=== PATIENT | female | born 1945 | race Caucasian/White ===

== ENCOUNTER → 2017-03-15 | Outpatient (CLI) | payer MEDICARE ==
[2017-03-15 09:26] LABS: EKG EKG PERFORMED
[2017-03-15 10:05] LABS: Appearance,Urine Clear (Clear); Bilirubin,Urine Negative (Negative); Glucose,Urine (UA) Negative (Negative); Ketones,Urine Negative (Negative); Leukocyte Esterase,Urine Small (Negative); Nitrite,Urine Negative (Negative); Particle Count 707; Protein,Urine Negative (Negative); RBC,Urine <1 /hpf (0-5); Specific Gravity,Urine 1.011 (1.001-1.035); Squamous Epithelial Cell,Urine 1 /hpf (0-4); UA Billing (MACRO vs. MICRO) MICRO; Urobilinogen,Urine <2.0 mg/dL (<2.0); WBC,Urine 1 /hpf (0-5)
[2017-03-15 10:06] LABS: Basophils # (A) 0.1 k/uL (0-0.2); Basophils % (A) 2 %; CH 32.4; CHCM 33.5; Eosinophils # (A) 0.1 k/uL (0-0.7); Eosinophils % (A) 4 %; HCT 39.8 % (34.0-46.0); Luc # (Auto) 0.09; Luc % (Auto) 3; Lymphocytes # (A) 1.2 k/uL (1.0-4.8); Lymphocytes % (A) 34 %; MCH 31.8 pg (25.0-35.0); MCHC 32.8 g/dL (31.0-37.0); Mean Platelet Volume 7.6; Monocytes # (A) 0.3 k/uL (0-1.0); Monocytes % (A) 8 %; Neutrophils # (A) 1.8 k/uL (1.3-7.7); Neutrophils % (A) 50 %; WBC 3.6 k/uL (3.8-10.6); WBC (Perox) 3.57
[2017-03-15 10:10] LABS: Partial Thromboplastin Time 22.7 sec (22.0-30.0); Prothrombin Time 10.1 sec (9.0-12.0)
[2017-03-15 10:39] LABS: Anion Gap 6 mmol/L; Blood Urea Nitrogen 19 mg/dL (7-17); Calcium 9.4 mg/dL (8.4-10.2); Carbon Dioxide 31 mmol/L (22-30); Chloride 105 mmol/L (98-107); Glucose 105 mg/dL (74-99); Non-African American GFR(MDRD) >60 (>60 ml/min/1.73 sqM); Sodium 142 mmol/L (137-145)
== END | disposition home or self-care (01) ==
LOC: LABPAT 09:14
PROVIDERS: ATTEND Orthopaedic Surgery Orthopaedic Surgery of the Spine
DX: Z01.810 Encounter for preprocedural cardiovascular examination (principal); Z01.812 Encounter for preprocedural laboratory examination; Z01.818 Encounter for other preprocedural examination; M43.17 Spondylolisthesis, lumbosacral region
CPT/HCPCS: 80048; 81001; 85025; 85610; 85730; 86850; 86900; 86901; 87070; 93005

== ENCOUNTER 2017-03-23 06:25 | Inpatient (IN) | payer MEDICARE ==
[~2017-03-23 06:25] MED LIST: BACITRACIN 50,000 UNIT, POLYMYXIN B 500,000 UNIT in SODIUM CHLORIDE 0.9% IRRIGATIO 1,00... IRRIGATION ONE; LIDOCAINE 1% 20 ML VIAL (10MG/ML) FOR IV START INTRADERMA PRN; ONDANSETRON 4 MG/2 ML VIAL IVP PRN; ceFAZolin 2 GM in SODIUM CHLORIDE 0.9% 100 ML IVPB ONE
[2017-03-23] MEDS: LACTATED RINGERS 1,000 ML IV SCH (07:15)
[2017-03-23] MEDS ORDERED: fentaNYL (PF) 50 MCG/ML 2 ML AMP ONE (08:00)
[2017-03-23] MEDS ORDERED: GELATIN SPONGE,ABSORB (LARGE) 1 EACH SPONGE TOPICAL ONE (08:00)
[2017-03-23] MEDS ORDERED: LIDOCAINE 1% INJ 10MG/ML (20 ML MDV) ONE (08:00)
[2017-03-23] MEDS ORDERED: ONDANSETRON 4 MG/2 ML VIAL ONE (08:00)
[2017-03-23] MEDS ORDERED: ePHEDrine 50 MG/ML 1 ML AMP ONE (08:00)
[2017-03-23] MEDS ORDERED: SODIUM CHLORIDE 0.9% IRRIG 1,000 ML BTL IRRIGATION ONE (08:00)
[2017-03-23] MEDS ORDERED: LIDOCAINE 0.5%-EPI 1:200,000 50 ML VIAL SQ ONE (08:00)
[2017-03-23] MEDS ORDERED: THROMBIN (BOVINE) 5,000 UNIT VIAL TOPICAL ONE (08:00)
[2017-03-23] MEDS ORDERED: MIDAZOLAM 2 MG/2 ML VIAL ONE (08:00)
[2017-03-23] MEDS ORDERED: HEPARIN SODIUM,PORCINE 10,000 UNIT/ML 1 ML VIAL ONE (08:00)
[2017-03-23] MEDS ORDERED: GLYCOPYRROLATE 0.2 MG/ML 2 ML VIAL ONE (08:00)
[2017-03-23] MEDS ORDERED: ROCURONIUM BROMIDE 10 MG/ML 10 ML VIAL IV ONE (08:00)
[2017-03-23] MEDS ORDERED: BUPIVACAINE (PF) 0.25% 30 ML VIAL SQ ONE (08:00)
[2017-03-23] MEDS ORDERED: SUCCINYLCHOLINE CHLORIDE 100 MG/5 ML SYR IV ONE (08:00)
[2017-03-23] MEDS ORDERED: NEOSTIGMINE 1 MG/ML 10 ML VIAL ONE (08:00)
[2017-03-23] MEDS ORDERED: PROPOFOL 10 MG/ML 20 ML VIAL IV ONE (08:00)
[2017-03-23] MEDS ORDERED: LACTATED RINGERS 1,000 ML IV ONE ×2 (09:17→11:54)
--- NOTE | 2017-03-23 09:38 | XR ---
EXAMINATION TYPE: XR lumbar spine 1V DATE OF EXAM ORDERED: 03/23/2017 HISTORY: Needle Placement. COMPARISON: None. FINDINGS: A metallic pointer is pointing at the S1 vertebral body.
--- NOTE | 2017-03-23 10:45 | XR ---
EXAMINATION TYPE: XR lumbar spine 2 or 3V DATE OF EXAM: 03/23/2017 CLINICAL HISTORY: pain TECHNIQUE: AP and lateral views of the lumbar spine. COMPARISON: None. FINDINGS: There is fusion at L5-S1 with screws in place. Intervertebral body spacers are noted for L4-5 and L5- S1. Laminectomy changes identified. Postoperative alignment. IMPRESSION: Postsurgical changes as discussed
[2017-03-23] MEDS ORDERED: BENZOCAINE/MENTHOL LOZENG 1 EACH LOZENGE MUCOUS MEM PRN (11:06)
[2017-03-23] MEDS ORDERED: MAGNESIUM HYDROXIDE 2,400 MG/10 ML CUP PO PRN (11:06)
[2017-03-23] MEDS ORDERED: ONDANSETRON 4 MG/2 ML VIAL IVP PRN (11:06)
[2017-03-23] MEDS ORDERED: HYDROmorphone 1 MG/ML 1 ML SYRINGE IVP PRN ×2 (11:06)
[2017-03-23] MEDS: HYDROmorphone 1 MG/ML 1 ML SYRINGE IVP PRN ×4 (11:20→11:35)
--- NOTE | 2017-03-23 11:20 | P.OP ---
Date of Procedure: 03/23/17 Preoperative Diagnosis: Spinal stenosis L5-S1, degenerative disc disease L5-S1, adjacent level degeneration L5-S1, history of prior decompression and fusion L3 4 L4 5, lower extremity radiculopathy Postoperative Diagnosis: Same Findings of solid fusion L3 4 L4 5 Procedure(s) Performed: Implants: Anesthesia: GETA Pathology: none sent Condition: stable Disposition: PACU Indications for Procedure: Operative Findings: Description of Procedure: BRIEF OPERATIVE NOTE Preoperative Diagnosis: Spinal stenosis L5-S1, adjacent level degeneration L5- S1 with history of prior fusion L3 4 L4 5, degenerative disc disease L5-S1, lower extremity radiculopathy L5-S1, retained hardware L3 4 L4 5 Postoperative Diagnosis: Same with findings of stable fusion L3 4 L4 5 Procedure: Laminectomy and decompression L5-S1 with wide bilateral foraminotomy and facetectomy Posterior lateral decompression and fusion Transforaminal lumbar interbody fusion for a 360 fusion L5-S1 Discectomy for decompression L5-S1 Placement of interbody graft L5-S1 Local autogenous bone grafting Bone marrow aspiration via pedicle at S1 Removal of deep hardware L3 4 and 5 Expiration of fusion L3 4 L4 5 with findings of solid fusion Use of Cell Saver Use of bone graft extenders Use of neuro monitoring Surgeon: Dr. Block Entry Clerk: Kashif THURMAN who is present throughout the entire the case persistence during positioning, dissection, exposure, visualization, and all crucial elements of the case as well as closure. Anesthesia: General anesthesia Estimated blood loss: Approximately 150 mL with 50 mL given back through Cell Saver Complications: None apparent Components implanted: We implanted a new K2M [place] pedicle screws 7.5 mm at L5 and 6.5 at S1 with rods and Screws, we'll see used one large osteochondral Cancellus bone sponge to supplement the local autogenous bone graft and bone marrow aspirate Disposition: To recovery room in good stable condition. OPERATIVE INDICATIONS The patient has had long-standing issues in their lower back and lower extremities. Several years ago she had undergone decompression and fusion for lumbar spine with stenosis and degenerative change. She had done well after her surgery and was having in his result with good findings of 6 stable fusion at L3 4 and L4 5. However over the past several months she is developing significant worsening in her low back and lower extremities over an S1 distribution. She was found have progressive degeneration at L5-S1 with significant stenosis and foraminal stenosis. We felt that the adjacent level LV -SI was the matrix to her new and recurrent pain. We discussed different treatment options for her. The patient has been through conservative treatment. She did not have any lasting benefit to light aggressive conservative treatment. We discussed various treatment options including surgery, and the patient wishes to proceed with surgery We discussed the risk, patient's alternatives and benefits of surgery including but not limited to, risk of bleeding risk of infection, risk of need for further surgery, risk of decreased, loss of motion, muscle function, malunion nonunion, hardware failure , nerve damage, paralysis, heart attack, blindness and . OPERATIVE SUMMARY After discussing all the risks, patient alternatives and benefits at length, the patient elected to proceed with surgical intervention, signed informed consent, and presented for their procedure. The patient was seen and examined in the preoperative holding area and the surgical site was marked. The patient was given antibiotics and brought to the operating room. The patient was sedated and intubated by anesthesia in standard fashion. The patient was positioned on to the operating room table in a prone position on the appropriate frame which was well-padded and well molded. We were careful to pad any bony prominences and pressure points. We were careful to maintain the patient's cervical spine and good neutral alignment and position throughout. The patient was prepped and draped in a normal standard fashion. An appropriate timeout and keystone protocol performed. We were able to proceed with the surgery. The local wound area was infiltrated with local anesthetic. An incision was made at the midline longitudinally over the appropriate levels utilizing the prior incision from L3 to S1. Dissection was taken down subcutaneously to the level of the fascia which was split midline. Dissection was taken over the lamina to expose the hardware L3 4 and 5 and pedicle screws and rods. I was able to remove the cross-link appropriately and then expose the pedicle screw heads. The Screws and rods and then pedicle screws were all removed appropriately the appropriate instruments. The removed hardware was removed from the bone and examined and found to be in total. I was able to explore the fusion mass and see if there is any motion at L3 4 and 5 and there was not found be any motion at those levels. I felt that there was a good solid fusion L3 4 and 5. I was able to dissect down over S1 and the facet at L5 -S1 bilaterally. I placed a metallic marker at the S1 pedicle. Intraoperative x-ray was taken which showed a marker at the appropriate level of S1. We were able to proceed with placement of the pedicle holes and screws. The patient had all their twitches back. The wound was copiously irrigated and suctioned dry as had been done periodically throughout the case. Screw holes were established similarly at the S1 I felt we could use the pedicle screw holes at L5 bilaterally. level. A sharp awl was used to establish the starting hole at S1. It was palpated and found to have good for au and good base. A monitored Steffee probe was used to establish the pedicle hole. It was positioned so there was no stimulation at 12 mA. The hole was palpated and found to have good for au and a good base. The hole was tapped with the appropriate sized tap. The sacral ala was decorticated with a high-speed bur. I was able to use these holes to place the appropriate size screw and good alignment and good position with good bony purchase. When the screws were inserted there were stimulated, and found to have no stimulation at 20 mA. I used 7.5 screws at L5 and 6.5 screws at S1 bilaterally. I was able to turn my attention to the decompression. decompression was performed with a combination of rongeurs, curettes, Kerrison rongeurs and a ball -tip feeler. All of the bone that was removed was stripped and morcellized for use as autogenous bone graft later in the case. There was significant hypertrophy of the facet joints and ligamentum flavum which was removed appropriately for decompression. I was able to obtain good central decompression as well as wide bilateral foraminal decompression. There is no evidence of dural tear or leak. Good hemostasis was maintained. The wound was irrigated and suctioned dry. I performed a complete facetectomy at the appropriate level on the most symptomatic side on the right of L5-S1. All bone that was removed was saved for local autogenous bone grafting. I was able to gain access to the disc space at the appropriate level/levels. Good hemostasis was maintained. I was able to protect the neurologic structures. No was made of significant disc protrusion causing further stenosis. A discectomy was performed. This provided further decompression. I was also able to perform complete discectomy and endplate preparation with a combination of pituitary curettes, rasps and scrapers. With the interbody space prepared, I was able to do appropriate sizing. The appropriate size cage was chosen. The wound was irrigated and suctioned dry. The interbody space was packed with local autogenous bone graft and a small portion of bone graft substitute, as was the cage itself. Protecting the soft tissue structures, I was able place the cage in good alignment and good position with good fit and fill. There is no evidence of extrusion of the graft material nor protrusion of the interbody device. The wound was irrigated and suctioned dry. With the hardware intact, intraoperative x-ray was again taken which showed good alignment and position of the hardware at the appropriate levels at L5-S1. We were then able to measure, contour and place the rods and appropriate hardware bilaterally. I was able to place capcrews, tighten them down, and shear them off appropriately. The sheared portion was counted and accounted for. With this intact I was able to place the local otitis bone graft with additional bone graft enhancer as necessary into the posterior lateral gutters bilaterally. With the bone graft intact, a stable construct, and good decompression at the appropriate levels, we were able to proceed with closure. Good hemostasis was maintained. There is no evidence of dural tear or leak. The fascia was closed for a watertight closure. The subcutaneous tissue was closed over a superficial drain. The subcuticular tissue was closed with absorbable suture. The wound was cleaned and dried and dressed with the appropriate dressing. The drapes were broken down. The patient was gently rolled back onto their hospital bed being careful to maintain their cervical spine and good neutral alignment and position. They were woken up by anesthesia , extubated, and brought to the recovery room in good stable condition. The patient will be admitted to the hospital for appropriate postoperative care , medical management and monitoring. We will continue to follow them closely about the postoperative course.
[2017-03-23] MEDS: MIDAZOLAM 2 MG/2 ML VIAL IV PRN ×2 (11:45→11:50)
[2017-03-23] MEDS: HYDROmorphone PCA 5 MG/25 ML SYRINGE IV PRN ×2 (12:40→20:08)
[2017-03-23 14:29] VITALS: BMI 32.0
[2017-03-23] MEDS: SODIUM CHLORIDE 0.9% 1,000 ML IV SCH (16:01)
[2017-03-23] MEDS: HYDROcodone/APAP 5-325MG 1 EACH TAB PO PRN ×2 (16:04→20:07)
[2017-03-23] MEDS: ceFAZolin 2 GM in SODIUM CHLORIDE 0.9% 100 ML IVPB SCH ×2 (16:04→23:45)
[2017-03-23] MEDS: CALCIUM CARB-VIT D 500MG-200UN 1 EACH TAB PO SCH (17:26)
[2017-03-23] MEDS: GABAPENTIN 300 MG CAP PO SCH (21:21)
[2017-03-23] MEDS: CYCLOBENZAPRINE 5 MG TAB PO SCH (21:21)
[2017-03-23] MEDS: ZOLPIDEM 10 MG TAB PO SCH (21:21)
[2017-03-24] MEDS: SODIUM CHLORIDE 0.9% 1,000 ML IV SCH ×3 (02:15→13:58)
[2017-03-24] MEDS: SENNOSIDES-DOCUSATE SODIUM 1 EACH TAB PO SCH (07:35)
[2017-03-24] MEDS: SERTRALINE 100 MG TAB PO SCH (07:35)
[2017-03-24] MEDS: HYDROcodone/APAP 5-325MG 1 EACH TAB PO PRN ×3 (07:35→20:31)
[2017-03-24 08:20] LABS: Anion Gap 7 mmol/L; Blood Urea Nitrogen 13 mg/dL (7-17); Calcium 8.5 mg/dL (8.4-10.2); Carbon Dioxide 25 mmol/L (22-30); Chloride 104 mmol/L (98-107); Glucose 117 mg/dL (74-99); Non-African American GFR(MDRD) >60 (>60 ml/min/1.73 sqM); Potassium 3.8 mmol/L (3.5-5.1); Sodium 136 mmol/L (137-145)
[2017-03-24 08:23] LABS: Basophils % (A) 0 %; CH 32.5; Eosinophils # (A) 0.2 k/uL (0-0.7); Eosinophils % (A) 2 %; HCT 32.8 % (34.0-46.0); HDW 2.57; HGB 11.4 gm/dL (11.4-16.0); Luc # (Auto) 0.06; Luc % (Auto) 1; Lymphocytes # (A) 0.4 k/uL (1.0-4.8); Lymphocytes % (A) 5 %; MCH 32.3 pg (25.0-35.0); MCHC 34.6 g/dL (31.0-37.0); MCV 93.4 fL (80.0-100.0); Mean Platelet Volume 7.5; Monocytes # (A) 0.3 k/uL (0-1.0); Monocytes % (A) 4 %; Neutrophils # (A) 8.1 k/uL (1.3-7.7); Neutrophils % (A) 89 %; RBC 3.52 m/uL (3.80-5.40); RDW 12.8 % (11.5-15.5); WBC 9.1 k/uL (3.8-10.6); WBC (Perox) 9.89
[2017-03-24] MEDS: LACTATED RINGERS 1,000 ML IV SCH (09:13)
--- NOTE | 2017-03-24 09:14 | P.PN ---
Progress Note - Text Postoperative day #1 Patient is seen and examined today at bedside. The patient has some pain around the surgical site as expected. Pain is being controlled with medication. She feels that this surgery thus far has been going better than her last. She has been able to sit up in bed and is tolerating her diet. She has not had been ambulatory but feels that she will be able to do so with therapy. Physical Exam Afebrile with stable vital signs Abdomen is soft nontender. Chest has good excursion deep and space expiration The incision site is clean dry and intact. No erythema there is no purulence. The dressing and the drain are intact without significant drainage. Extremities have not had neurologic change from prior to surgery. She has sustained dorsiflexion plantarflexion and EHL intact. Her strength is appropriate. Calves and thighs were soft nontender without evidence of DVT. Assessment/Plan Postoperative day #1 status post decompression and fusion L5-S1 with removal of hardware L3 4 L4 5 for her spinal stenosis Patient is progressing as expected from the surgery. We will try to get her up today with physical therapy. She is doing well thus far with her diet and pain control. We will continue to increase the patient's mobilization with therapy. We will continue pain control with oral or IV medications. We'll continue to follow patient closely.
[2017-03-24] MEDS: CYANOCOBALAMIN 500 MCG TAB PO SCH (12:15)
[2017-03-24] MEDS: CALCIUM CARB-VIT D 500MG-200UN 1 EACH TAB PO SCH ×2 (12:16→18:07)
[2017-03-24] MEDS: MULTIVITAMINS, THERA 1 EACH TAB PO SCH (12:16)
[2017-03-24] MEDS: CYCLOBENZAPRINE 5 MG TAB PO SCH (20:31)
[2017-03-24] MEDS: ZOLPIDEM 10 MG TAB PO SCH (20:31)
[2017-03-24] MEDS: GABAPENTIN 300 MG CAP PO SCH (20:31)
[2017-03-25] MEDS: HYDROcodone/APAP 5-325MG 1 EACH TAB PO PRN ×4 (00:37→20:17)
[2017-03-25] MEDS: SODIUM CHLORIDE 0.9% 1,000 ML IV SCH ×2 (05:32→17:13)
[2017-03-25] MEDS: LACTATED RINGERS 1,000 ML IV SCH (05:33)
[2017-03-25] MEDS: SERTRALINE 100 MG TAB PO SCH (08:31)
[2017-03-25] MEDS: SENNOSIDES-DOCUSATE SODIUM 1 EACH TAB PO SCH (08:31)
--- NOTE | 2017-03-25 09:00 | P.PN ---
Progress Note - Text Orthopedic Spine Patient is a pleasant 71-year-old female who is seen and examined at the bedside following posterior lateral decompression and fusion performed Tuesday. Patient states they are doing well postsurgically. Currently does not complain of nausea, vomiting, fever, or chills. Patient states pain has been adequately controlled. Patient is eating and voiding freely without difficulty. He has been able to ambulate to the restroom. She feels overall she is improving much better this time as compared to her previous lumbar surgery. The MEDICAL DIRECTOR has been discontinued. Overall her pain has been fairly well controlled with oral medications. If she continues to improve, she feels she may be ready for discharge home tomorrow. Physical Exam Lumbar Fusion: Status post surgical day number 2 Patient is awake, alert, and oriented 3 Vital signs stable Good chest excursion with deep inspiration and expiration Abdomen soft nontender Dorsiflexion, plantarflexion, and extensor hallucis longus positive sustained bilaterally No signs or symptoms of DVT; no calf pain; pneumatic cuffs intact bilateral lower extremities Dressing is clean, dry, and intact; no erythema, purulence, or signs of infection Hemovac drain well secure Dressing removing physical examination; Hemovac drain removed Nonstick Telfa and Tegaderm placed over the incision site Neurovascularly intact bilaterally lower extremities Assessment: Posterior lateral decompression and fusion L5-S1 Transforaminal lumbar interbody fusion of L5-S1 Removal of hardware L3-5 L5-S1 spinal canal stenosis, degenerative disc disease, and adjacent level degeneration Lower extremity radiculopathy Plan: 1. Ambulate as tolerated; work with Physical Therapy to increase mobilization 2. Continue pain control with IV and oral medications; DC has been discontinued ; we'll try to continue controlling pain with oral medications with plans for discharge home tomorrow 3. Dressing changed to Telfa and Tegaderm; Hemovac drain discontinued 4. Medical management can continue to manage patient for patient's other medical issues 5. We will continue to follow the patient closely 6. Patient can follow-up with Kashif Sifuentes PA-C or Dr. Eduardo Block at [facility] in 2-3 weeks following discharge
[2017-03-25] MEDS: MULTIVITAMINS, THERA 1 EACH TAB PO SCH (12:32)
[2017-03-25] MEDS: CALCIUM CARB-VIT D 500MG-200UN 1 EACH TAB PO SCH ×2 (12:32→18:11)
[2017-03-25] MEDS: CYANOCOBALAMIN 500 MCG TAB PO SCH (12:32)
[2017-03-25 15:29] VITALS: RESP 16
[2017-03-25] MEDS: ZOLPIDEM 10 MG TAB PO SCH (20:16)
[2017-03-25] MEDS: GABAPENTIN 300 MG CAP PO SCH (20:16)
[2017-03-25] MEDS: CYCLOBENZAPRINE 5 MG TAB PO SCH (20:16)
[2017-03-26] MEDS: HYDROcodone/APAP 5-325MG 1 EACH TAB PO PRN ×3 (03:26→12:02)
[2017-03-26] MEDS: SERTRALINE 100 MG TAB PO SCH (08:25)
[2017-03-26] MEDS: SENNOSIDES-DOCUSATE SODIUM 1 EACH TAB PO SCH (08:25)
[2017-03-26 08:30] VITALS: BP 153/64; PULSE 94; TEMP 98.7
[2017-03-26] MEDS ORDERED: NON-FORMULARY DRUG (Alendronate Sodium [Alendronate Sodium] 70 MG) PO SCH (11:10)
--- NOTE | 2017-03-26 11:37 | P.DS ---
Providers Date of admission: 03/23/17 06:25 Expected date of discharge: 03/26/17 Attending physician: Jackie Block Primary care physician: Tari Delatorre - Discharge Diagnosis(es) (1) Spondylolisthesis She is a pleasant 71-year-old female was admitted to the OR on 03/23/2017 to undergo removal of hardware L3-L5 with lumbar decompression and interbody fusion at L5-S1. She had failed conservative measures as an outpatient and desired to proceed with surgical intervention after given informed consent including possible risks, complications and benefits. She underwent the above procedure which she tolerated well without complication. Her postoperative hospital course has remained without complication. On day of discharge she is afebrile, vital signs stable, abscess and acceptable ranges, wound is benign, tolerating by mouth meds and diet, pain controlled, positive flatus, voiding without difficulty, denies new complaints, ambulating, and neurovascular status intact. Review of systems is negative for abdominal pain, fever, chills, chest pain, shortness of breath, nausea, vomiting, dizziness, headaches, rashes, calf pain, numbness, tingling, weakness, slurred speech or other. Current Visit: Yes Status: Acute Priority: Medium Procedures: Removal of hardware L3 through L5, lumbar decompression and fusion with instrumentation at L5-S1 with interbody graft. Patient Condition at Discharge: Good Plan - Discharge Summary New Discharge Prescriptions: New Hydrocodone/Acetaminophen [Dickens 5-325] 1 - 2 each PO Q6HR PRN #90 tab PRN Reason: Pain No Action Multivitamins, Thera [Multivitamin (formulary)] 1 tab PO DAILY Alendronate Sodium 70 mg PO SA Zolpidem [Ambien] 10 mg PO HS Sertraline [Zoloft] 100 mg PO DAILY Gabapentin 600 mg PO HS Ibuprofen [Motrin] 800 mg PO BID Calcium Carbonate/Vitamin D3 [Calcium 600-Vit D3 400 Tablet] 1 tab PO BID Cyclobenzaprine [Flexeril] 5 mg PO HS Cyanocobalamin [Vitamin B-12] 2,500 mcg PO DAILY Discharge Medication List Alendronate Sodium 70 mg PO SA 12/18/15 [History] Gabapentin 600 mg PO HS 12/18/15 [History] Ibuprofen [Motrin] 800 mg PO BID 12/18/15 [History] Multivitamins, Thera [Multivitamin (formulary)] 1 tab PO DAILY 12/18/15 [History ] Sertraline [Zoloft] 100 mg PO DAILY 12/18/15 [History] Zolpidem [Ambien] 10 mg PO HS 12/18/15 [History] Calcium Carbonate/Vitamin D3 [Calcium 600-Vit D3 400 Tablet] 1 tab PO BID [History] Cyclobenzaprine [Flexeril] 5 mg PO HS 12/28/15 [History] Cyanocobalamin [Vitamin B-12] 2,500 mcg PO DAILY 03/17/17 [History] Hydrocodone/Acetaminophen [Dickens 5-325] 1 - 2 each PO Q6HR PRN #90 tab 03/25/17 [Rx] Follow up Appointment(s)/Referral(s): Kashif Sifuentes, BISI [PHYSICIAN AUTOMATIC PACKER OPERATOR] - 2 Weeks (Patient to call Dr. Block's office Tuesday to schedule folow up appointment. The office is closed at time of discharge. Patient may follow-up with Kashif Sifuentes PA-C or Dr. Eduardo Block at [facility] in 2-3 weeks following discharge. ) Patient Instructions/Handouts: *Surgery [facility] - ([facility]) Lumbar Surgery Discharge Instructions, Hydrocodone/Acetaminophen (By mouth) Activity/Diet/Wound Care/Special Instructions: 1. Patient may shower Tegaderm dressing intact. 2. Patient may remove Tegaderm dressing in 3 days and shower without a dressing at that time. 3. Patient should keep Steri-Strips intact and allow them to fall off naturally. 4. Patient should refrain from driving until at least after their first follow- up appointment in the office. 5. Patient should avoid excessive bending, twisting, and lifting; no lifting greater than 10 pounds 6. Do not soak in tub Discharge Disposition: HOME SELF-CARE
[2017-03-26] MEDS: SODIUM CHLORIDE 0.9% 1,000 ML IV SCH (11:39)
[2017-03-26] MEDS: LACTATED RINGERS 1,000 ML IV SCH (11:39)
== END 2017-03-26 14:10 | disposition home or self-care (01) | DRG 460 ==
LOC: 2ORMAIN 06:25 → 5ONC 11:15 → 5MS5E 03-25 10:05
PROVIDERS: ADMIT Orthopaedic Surgery Orthopaedic Surgery of the Spine; ATTEND Orthopaedic Surgery Orthopaedic Surgery of the Spine
PROC: 0SG30A1 (ICD-10-PCS; 2017-03-23)
PROC: 0SP00AZ Removal of Interbody Fusion Device from Lumbar Vertebral Joint, Open Approach (ICD-10-PCS; 2017-03-23)
PROC: 07DS3ZZ Extraction of Vertebral Bone Marrow, Percutaneous Approach (ICD-10-PCS; 2017-03-23)
PROC: 0ST40ZZ Resection of Lumbosacral Disc, Open Approach (ICD-10-PCS; principal; 2017-03-23 08:00)
DX: M48.07 Spinal stenosis, lumbosacral region (principal); I10 Essential (primary) hypertension; F32.9 Major depressive disorder, single episode, unspecified; M51.17 Intervertebral disc disorders with radiculopathy, lumbosacral region; M43.17 Spondylolisthesis, lumbosacral region; M79.7 Fibromyalgia; M19.90 Unspecified osteoarthritis, unspecified site; E78.5 Hyperlipidemia, unspecified; Z96.651 Presence of right artificial knee joint; Z98.1 Arthrodesis status
CPT/HCPCS: 72020; 72100; 80048; 85025; 86850; 86891; 86900; 86901

== ENCOUNTER → 2017-11-28 | Outpatient (CLI) | payer MEDICARE ==
--- NOTE | 2017-11-29 11:29 | MM ---
Reason for exam: screening (asymptomatic). Last mammogram was performed 1 year ago. History: Patient is postmenopausal. Family history of breast cancer in mother at age 73. Excisional biopsy of the right breast, 1989. Physical Findings: A clinical breast exam by your physician is recommended on an annual basis and results should be correlated with mammographic findings. MG Screening Mammo w CAD Bilateral CC and MLO view(s) were taken. Prior study comparison: November 22, 2016, mammogram, performed at [facility]. October 22, 2015, mammogram, performed at [facility]. October 07, 2014, mammogram, performed at [facility]. The breast tissue is heterogeneously dense. This may lower the sensitivity of mammography. There is no discrete abnormality. No significant changes when compared with prior studies. ASSESSMENT: Negative, BI-RAD 1 RECOMMENDATION: Routine screening mammogram of both breasts in 1 year.
== END | disposition home or self-care (01) ==
LOC: RADMAMWWP 10:40
PROVIDERS: ATTEND Obstetrics & Gynecology
DX: Z12.31 Encounter for screening mammogram for malignant neoplasm of breast (principal)
CPT/HCPCS: 77067

== ENCOUNTER 2018-01-05 21:03 | Emergency (ER) | payer MEDICARE ==
[2018-01-05] MEDS ORDERED: ASPIRIN 81 MG PO STA (21:35)
[2018-01-05] MEDS ORDERED: SODIUM CHLORIDE 0.9% 500 ML IV STA (21:35)
--- NOTE | 2018-01-05 21:41 | ED ---
Chest Pain HPI - General Chief Complaint: Chest Pain Stated Complaint: chest pain Time Seen by Provider: 01/05/18 21:24 Source: patient Mode of arrival: wheelchair Limitations: no limitations - History of Present Illness Initial Comments: 72 year-old patient presents to the emergency department today for evaluation of chest heaviness. Patient states that this morning she started having some chest pressure and heaviness. States that she is also feeling lightheaded with this. States that she did go in to see her primary care physician Dr. Delatorre who told her it seemed to be angina and gave her a prescription of nitro. His plan was to set her up with cardiology in the morning. Patient states when she arrived home she was feeling somewhat better however did have recurrence of the chest pressure. Patient states that she did take a nitro tablet. States that she did feel a warmth that spread throughout her body down to her fingers and toes however her chest pressure did improve. Patient states with this she was slightly nauseated. States that she again became lightheaded when the pain came on. States that she did have a pain in her back between her shoulder blades. She denies any neck or jaw pain. She denies any numbness, tingling, weakness, palpitations, or sweats. She denies any personal cardiac history however states that her father and sibling have had heart problems. Patient denies any recent rash, fever, chills, abdominal pain, vomiting, diarrhea, constipation, back pain, hematuria, dysuria, urinary urgency, urinary frequency , headache, visual changes, or any other complaints. - Related Data Home Medications Medication Instructions Recorded Confirmed Alendronate Sodium 70 mg PO 12/18/15 01/05/18 Gabapentin 600 mg PO 12/18/15 01/05/18 Ibuprofen [Motrin] 800 mg PO BID 12/18/15 01/05/18 Multivitamins, Thera [Multivitamin 1 tab PO DAILY 12/18/15 01/05/18 (formulary)] Sertraline [Zoloft] 100 mg PO DAILY 12/18/15 01/05/18 Zolpidem [Ambien] 10 mg PO HS 12/18/15 01/05/18 Calcium Carbonate/Vitamin D3 1 tab PO BID 12/28/15 01/05/18 [Calcium 600-Vit D3 400 Tablet] Cyclobenzaprine [Flexeril] 5 mg PO HS 12/28/15 01/05/18 Cyanocobalamin [Vitamin B-12] 2,500 mcg PO DAILY 03/17/17 01/05/18 Aspirin [Adult Low Dose Aspirin EC] 81 mg PO DAILY 01/05/18 01/05/18 Metoprolol Succinate (ER) [Toprol 25 mg PO DAILY 01/05/18 01/05/18 Xl] Nitroglycerin Sl Tabs [Nitrostat] 0.4 mg SUBLINGUAL Q5M PRN 01/05/18 01/05/18 cycloSPORINE [Restasis] 1 applicator BOTH EYES BID 01/05/18 01/05/18 Allergies Allergy/AdvReac Type Severity Reaction Status Date / Time No Known Allergies Allergy Verified 01/05/18 21:34 Review of Systems ROS Statement: Those systems with pertinent positive or pertinent negative responses have been documented in the HPI. ROS Other: All systems not noted in ROS Statement are negative. EKG Findings - EKG Comments: EKG Findings:: EKG obtained at 2116 shows normal sinus rhythm with a ventricular rate of 82, VA interval 190, QRS duration 96, QT 370, QTC 432. No evidence of ST elevation or depression. Past Medical History Past Medical History: Chest Pain / Angina, Hypertension, Osteoarthritis (OA) Additional Past Medical History / Comment(s): colitis History of Any Multi-Drug Resistant Organisms: None Reported Past Surgical History: Back Surgery Additional Past Surgical History / Comment(s): RIGHT TOTAL KNEE, RIGHT AND LEFT SURGERY, RIGHT ELBOW, Past Anesthesia/Blood Transfusion Reactions: No Reported Reaction Past Psychological History: Depression Smoking Status: Never smoker Past Alcohol Use History: None Reported Past Drug Use History: None Reported - Past Family History Mother Family Medical History: Cancer Additional Family Medical History / Comment(s): BREAST CANCER General Exam Limitations: no limitations Course Vital Signs 01/05/18 01/05/18 01/05/18 21:06 21:43 23:07 Temperature 98.7 F Pulse Rate 88 77 70 Respiratory 18 18 16 Rate Blood Pressure 174/84 174/74 149/67 O2 Sat by Pulse 100 100 98 Oximetry 01/05/18 23:47 Temperature 98.3 F Pulse Rate Respiratory Rate Blood Pressure O2 Sat by Pulse Oximetry Chest Pain MDM - MDM RADIOLOGY: Two-view x-ray of the chest shows a heart and mediastinum are normal. Lungs are clear. Diaphragm is normal. There are chest leads. Bony thorax is intact. Impression by Dr. Reyes shows normal chest with no change. MDM: 72-year-old female patient presents to the emergency department today with complaints of chest pressure and lightheadedness. Physical examination was unremarkable. Lungs are clear to auscultation with good air movement. Heart sounds were normal. Labs reviewed and did reveal a d-dimer of 0.60, given age adjustment we do feel this is normal for the patient. Other labs are unremarkable. Troponin and cardiac panel is negative. Chest x-ray showed no acute cardiopulmonary process. Did reevaluate the patient and she is feeling much better. I did discuss findings with her and her . I did offer admission to see cardiology in the morning. She requests discharge. She did have an appointment with her primary care physician who is sitting up to see cardiology tomorrow. Return parameters are discussed in detail. She is instructed to return here immediately for any new, worsening, or concerning symptoms. She verbalizes understanding and agrees with this plan. Disposition Clinical Impression: Chest pressure Disposition: HOME SELF-CARE Condition: Good Instructions: Chest Pain (ED) Additional Instructions: Follow-up with cardiology as you have planned. Follow-up through primary care physician for recheck. Return here immediately for any new, worsening, or concerning symptoms. Referrals: Tari Delatorre MD [Primary Care Provider] - 1-2 days Time of Disposition: 23:40
[2018-01-05 21:53] LABS: Basophils # (A) 0.1 k/uL (0-0.2); Basophils % (A) 1 %; Eosinophils # (A) 0.2 k/uL (0-0.7); Eosinophils % (A) 3 %; HCT 39.5 % (34.0-46.0); Lymphocytes % (A) 35 %; MCH 31.3 pg (25.0-35.0); MCHC 35.5 g/dL (31.0-37.0); MCV 88.1 fL (80.0-100.0); Mean Platelet Volume 7.9; Monocytes # (A) 0.3 k/uL (0-1.0); Monocytes % (A) 5 %; Neutrophils % (A) 53 %; Platelet Count 286 k/uL (150-450); RBC 4.49 m/uL (3.80-5.40); RDW 12.8 % (11.5-15.5); WBC 5.6 k/uL (3.8-10.6)
[2018-01-05 22:01] LABS: D-Dimer 0.6 mg/L FEU (<0.60)
[2018-01-05 22:02] LABS: Albumin 4.3 g/dL (3.5-5.0); Calcium 9.8 mg/dL (8.4-10.2); Potassium 4.1 mmol/L (3.5-5.1); Total Bilirubin 0.2 mg/dL (0.2-1.3); Total Protein 7.3 g/dL (6.3-8.2)
[2018-01-05 22:05] LABS: Partial Thromboplastin Time 23.9 sec (22.0-30.0); Prothrombin Time 10.1 sec (9.0-12.0)
[2018-01-05 22:15] LABS: Creatine Kinase 53 U/L (30-135)
[2018-01-05 22:26] LABS: Creatine Kinase MB 0.6 ng/mL (0.0-2.4); Troponin I <0.012 ng/mL (0.000-0.034)
--- NOTE | 2018-01-05 22:27 | XR ---
EXAMINATION TYPE: XR chest 2V DATE OF EXAM: 01/05/2018 COMPARISON: 02/28/2017 HISTORY: Chest pain TECHNIQUE: Frontal and lateral views of the chest are obtained. FINDINGS: Heart and mediastinum are normal. Lungs are clear. Diaphragm is normal. There are chest le ads. Bony thorax is intact. IMPRESSION: Normal chest. No change.
[2018-01-05 23:08] VITALS: BP 149/67; PULSE 70; RESP 16
[2018-01-05 23:47] VITALS: TEMP 98.3
--- NOTE | 2018-01-09 01:50 | CDI ---
Documentation Clarification OP Dear Celina LAO, NPC Please do addendum to ED report for Physical exam Thank you, Sis Don [employer] Loan Officer If you have any question, Please contact assisted living manager at [phone] [email or web address]
== END 2018-01-05 23:47 | disposition home or self-care (01) ==
LOC: EC 21:03
DX: R07.89 Other chest pain (principal); R11.0 Nausea; R42 Dizziness and giddiness; I10 Essential (primary) hypertension; M19.90 Unspecified osteoarthritis, unspecified site; F32.9 Major depressive disorder, single episode, unspecified; Z79.1 Long term (current) use of non-steroidal anti-inflammatories (NSAID); Z79.82 Long term (current) use of aspirin; Z79.899 Other long term (current) drug therapy
CPT/HCPCS: 36415; 71046; 80053; 82550; 82553; 83735; 84484; 85025; 85379; 85610; 85730; 93005; 96360; 96361; 99285

== ENCOUNTER → 2018-11-30 | Outpatient (CLI) | payer MEDICARE, OTHER ==
--- NOTE | 2018-11-30 14:02 | MM ---
Reason for exam: screening (asymptomatic). Last mammogram was performed 1 year ago. History: Patient is postmenopausal. Family history of breast cancer in mother at age 73. Excisional biopsy of the right breast, 1989. Physical Findings: A clinical breast exam by your physician is recommended on an annual basis and results should be correlated with mammographic findings. MG 3D Screening Mammo W/Cad Bilateral CC and MLO view(s) were taken. Prior study comparison: November 28, 2017, bilateral MG screening mammo w CAD. November 22, 2016, mammogram, performed at [facility]. The breast tissue is heterogeneously dense. This may lower the sensitivity of mammography. No significant changes when compared with prior studies. ASSESSMENT: Benign, BI-RAD 2 RECOMMENDATION: Routine screening mammogram of both breasts in 1 year.
== END | disposition home or self-care (01) ==
LOC: RADMAMWWP 08:17
PROVIDERS: ATTEND Obstetrics & Gynecology
DX: Z12.31 Encounter for screening mammogram for malignant neoplasm of breast (principal)
CPT/HCPCS: 77063; 77067

== ENCOUNTER → 2019-07-27 | Outpatient (CLI) | payer MEDICARE, OTHER ==
[2019-07-27 10:53] LABS: Basophils % (A) 1 %; Eosinophils # (A) 0.1 k/uL (0-0.7); Eosinophils % (A) 3 %; HCT 38.9 % (34.0-46.0); HGB 12.7 gm/dL (11.4-16.0); Lymphocytes # (A) 1.6 k/uL (1.0-4.8); Lymphocytes % (A) 37 %; MCHC 32.6 g/dL (31.0-37.0); Mean Platelet Volume 6.7; Monocytes # (A) 0.3 k/uL (0-1.0); Monocytes % (A) 6 %; Neutrophils # (A) 2.2 k/uL (1.3-7.7); Neutrophils % (A) 50 %; Platelet Count 283 k/uL (150-450); WBC 4.3 k/uL (3.8-10.6)
[2019-07-27 18:49] LABS: African American GFR (CKD) 64.7 (60.0-200.0); Albumin 4.4 g/dL (3.80-4.90); Albumin/Globulin Ratio 2.2 (1.60-3.17); Anion Gap 8.3 mmol/L (4.00-12.00); Calcium 9.6 mg/dL (8.7-10.3); Carbon Dioxide 26.7 mmol/L (21.6-31.8); Chol/HDL Ratio 4.16; LDL Cholesterol,Calculated 133.4 mg/dL (0.0-131.0); Potassium 4.9 mmol/L (3.5-5.5); Total Bilirubin 0.5 mg/dL (0.3-1.2); Total Protein 6.4 g/dL (6.2-8.2); VLDL Calculation 21.6 mg/dL (5.00-40.00)
== END | disposition home or self-care (01) ==
LOC: LABWHC1 09:50
PROVIDERS: ATTEND Internal Medicine
DX: Z00.00 Encounter for general adult medical examination without abnormal findings (principal); E78.5 Hyperlipidemia, unspecified
CPT/HCPCS: 36415; 80053; 80061; 84439; 84443; 85025

== ENCOUNTER → 2019-12-03 | Outpatient (CLI) | payer MEDICARE, OTHER ==
--- NOTE | 2019-12-04 09:55 | MM ---
Reason for exam: screening (asymptomatic). Last mammogram was performed 1 year ago. History: Patient is postmenopausal. Family history of breast cancer in mother at age 73. Excisional biopsy of the right breast, 1989. Physical Findings: A clinical breast exam by your physician is recommended on an annual basis and results should be correlated with mammographic findings. MG 3D Screening Mammo W/Cad Bilateral CC and MLO view(s) were taken. Prior study comparison: November 30, 2018, bilateral MG 3d screening mammo w/cad. November 28, 2017, bilateral MG screening mammo w CAD. There are scattered fibroglandular densities. No significant changes when compared with prior studies. ASSESSMENT: Benign, BI-RAD 2 RECOMMENDATION: Routine screening mammogram of both breasts in 1 year.
== END | disposition home or self-care (01) ==
LOC: RADMAMWWP 08:01
PROVIDERS: ATTEND Obstetrics & Gynecology
DX: Z12.31 Encounter for screening mammogram for malignant neoplasm of breast (principal)
CPT/HCPCS: 77063; 77067

== ENCOUNTER → 2021-01-23 | Outpatient (CLI) | payer MEDICARE, OTHER ==
--- NOTE | 2021-01-26 11:03 | MM ---
Reason for exam: screening (asymptomatic). Last mammogram was performed 1 year and 2 months ago. History: Patient is postmenopausal. Family history of breast cancer in mother at age 73. Excisional biopsy of the right breast, 1989. Physical Findings: A clinical breast exam by your physician is recommended on an annual basis and results should be correlated with mammographic findings. MG 3D Screening Mammo W/Cad Bilateral CC and MLO view(s) were taken. Prior study comparison: December 03, 2019, bilateral MG 3d screening mammo w/cad. November 30, 2018, bilateral MG 3d screening mammo w/cad. The breast tissue is heterogeneously dense. This may lower the sensitivity of mammography. There are benign appearing round calcifications bilaterally. There is no discrete abnormality. ASSESSMENT: Benign, BI-RAD 2 RECOMMENDATION: Routine screening mammogram of both breasts in 1 year.
== END | disposition home or self-care (01) ==
LOC: RADMAMWWP 06:56
PROVIDERS: ATTEND Obstetrics & Gynecology
DX: Z12.31 Encounter for screening mammogram for malignant neoplasm of breast (principal); Z78.0 Asymptomatic menopausal state; Z80.3 Family history of malignant neoplasm of breast
CPT/HCPCS: 77063; 77067

== ENCOUNTER → 2021-04-16 | Outpatient (CLI) | payer MEDICARE, OTHER ==
[2021-04-16 14:43] LABS: Basophils # (A) 0.05 X 10*3/uL (0.00-0.10); Eosinophils # (A) 0.13 X 10*3/uL (0.04-0.35); Eosinophils % (A) 2.7 %; HCT 38.5 % (37.2-46.3); HGB 12.8 g/dL (12.0-15.0); Lymphocytes # (A) 1.39 X 10*3/uL (0.90-5.00); Lymphocytes % (A) 28.5 %; MCH 31.5 pg (27.0-32.0); MCHC 33.2 g/dL (32.0-37.0); MCV 94.8 fL (80.0-97.0); Mean Platelet Volume 11.6 fL (9.5-12.2); Monocytes # (A) 0.43 X 10*3/uL (0.20-1.00); Monocytes % (A) 8.8 %; Neutrophils # (A) 2.84 X 10*3/uL (1.80-7.70); Neutrophils % (A) 58.4 %; Platelet Count 263 X 10*3/uL (140-440); RBC 4.06 X 10*6/uL (4.10-5.20); RDW 12.7 % (11.5-14.5); WBC 4.87 X 10*3/uL (4.50-10.00)
[2021-04-16 15:44] LABS: African American GFR (CKD) 63.8 (60.0-200.0); Albumin 4.4 g/dL (3.80-4.90); Albumin/Globulin Ratio 1.83 (1.60-3.17); Anion Gap 8.9 mmol/L (4.00-12.00); Calcium 9.4 mg/dL (8.7-10.3); Carbon Dioxide 27.1 mmol/L (21.6-31.8); Chol/HDL Ratio 3.93; Globulin 2.4 g/dL (1.6-3.3); LDL Cholesterol,Calculated 111.2 mg/dL (0.0-131.0); Non-African American GFR(CKD) 55.1 (60.0-200.0); Potassium 4.5 mmol/L (3.5-5.5); Total Bilirubin 0.5 mg/dL (0.3-1.2); Total Protein 6.8 g/dL (6.2-8.2); VLDL Calculation 23.8 mg/dL (5.00-40.00)
[2021-04-16 16:45] LABS: T4, Free (Free Thyroxine) 0.9 ng/dL (0.80-1.80)
[2021-04-16 17:28] LABS: Erythrocyte Sedimentation Rate 21 mm/Hr (0-30)
[2021-04-17 18:25] LABS: Hemoglobin A1C 5.9 % (4.0-6.0)
== END | disposition home or self-care (01) ==
LOC: LABWHC1 09:10
PROVIDERS: ATTEND Internal Medicine
DX: I10 Essential (primary) hypertension (principal); E78.5 Hyperlipidemia, unspecified; M19.90 Unspecified osteoarthritis, unspecified site
CPT/HCPCS: 36415; 80053; 80061; 83036; 84439; 84443; 85025; 85652; 86431

== ENCOUNTER 2021-04-25 13:01 | Inpatient (IN) | payer MEDICARE, OTHER ==
[2021-04-25] MEDS ORDERED: MORPHINE SULFATE 4 MG/ML SYRINGE IM STA (13:30)
--- NOTE | 2021-04-25 14:04 | ED ---
Fall HPI - General Chief Complaint: Fall Stated Complaint: hip fracture Time Seen by Provider: 04/25/21 13:20 Source: patient Mode of arrival: EMS - History of Present Illness Initial Comments: 75-year-old female presents to emergency department with chief complaint of left hip pain. Patient reports incident occurred about one hour prior to arrival when she tripped over her slippers and fell on the left side of her body. States most of the pain is located in the left hip and mid shaft of the femur. She reports that she was given pain medication while in the eminence but it is starting to wear off. She denies any paresthesias in the extremity. Reports pain is exacerbated with any movement of the left leg. Denies head injuries after fall. - Related Data Home Medications Medication Instructions Recorded Confirmed Alendronate Sodium 70 mg PO SA 12/18/15 01/05/18 Gabapentin 600 mg PO HS 12/18/15 01/05/18 Ibuprofen [Motrin] 800 mg PO BID 12/18/15 01/05/18 Multivitamins, Thera [Multivitamin 1 tab PO DAILY 12/18/15 01/05/18 (formulary)] Sertraline [Zoloft] 100 mg PO DAILY 12/18/15 01/05/18 Zolpidem [Ambien] 10 mg PO HS 12/18/15 01/05/18 Calcium Carbonate/Vitamin D3 1 tab PO BID 12/28/15 01/05/18 [Calcium 600-Vit D3 400 Tablet] Cyclobenzaprine [Flexeril] 5 mg PO HS 12/28/15 01/05/18 Cyanocobalamin [Vitamin B-12] 2,500 mcg PO DAILY 03/17/17 01/05/18 Aspirin [Adult Low Dose Aspirin EC] 81 mg PO DAILY 01/05/18 01/05/18 Metoprolol Succinate (ER) [Toprol 25 mg PO DAILY 01/05/18 01/05/18 Xl] Nitroglycerin Sl Tabs [Nitrostat] 0.4 mg SUBLINGUAL Q5M PRN 01/05/18 01/05/18 cycloSPORINE [Restasis] 1 applicator BOTH EYES BID 01/05/18 01/05/18 Allergies Allergy/AdvReac Type Severity Reaction Status Date / Time No Known Allergies Allergy Verified 04/25/21 13:13 Review of Systems ROS Statement: Those systems with pertinent positive or pertinent negative responses have been documented in the HPI. ROS Other: All systems not noted in ROS Statement are negative. Past Medical History Past Medical History: Chest Pain / Angina, Hypertension, Osteoarthritis (OA) Additional Past Medical History / Comment(s): colitis History of Any Multi-Drug Resistant Organisms: None Reported Past Surgical History: Back Surgery Additional Past Surgical History / Comment(s): RIGHT TOTAL KNEE, RIGHT AND LEFT FootSURGERY, RIGHT ELBOW, Past Anesthesia/Blood Transfusion Reactions: No Reported Reaction Past Psychological History: Depression Smoking Status: Never smoker Past Alcohol Use History: None Reported Past Drug Use History: None Reported - Past Family History Mother Family Medical History: Cancer Additional Family Medical History / Comment(s): BREAST CANCER General Exam Limitations: no limitations General appearance: alert, in no apparent distress, obese Head exam: Present: atraumatic, normocephalic, normal inspection Eye exam: Present: normal appearance, PERRL, EOMI Pupils: Present: normal accommodation ENT exam: Present: normal exam, normal oropharynx, mucous membranes moist Neck exam: Present: normal inspection, full ROM. Absent: tenderness Respiratory exam: Present: normal lung sounds bilaterally. Absent: respiratory distress, wheezes Cardiovascular Exam: Present: regular rate, normal rhythm, normal heart sounds. Absent: diastolic murmur GI/Abdominal exam: Present: soft. Absent: distended, tenderness, guarding, rebound Extremities exam: Present: normal inspection, tenderness (Left lateral hip and tenderness over the midshaft of the left femur), normal capillary refill, other (Palpable DP and PT bilaterally. Sensation intact in the left lower extremity). Absent: full ROM (Limited range of motion of the left leg), pedal edema, joint swelling, calf tenderness Back exam: Present: normal inspection, full ROM. Absent: tenderness Neurological exam: Present: alert, oriented X3 Psychiatric exam: Present: normal affect, normal mood Skin exam: Present: warm, dry, intact, normal color Course Vital Signs 04/25/21 04/25/21 13:08 14:56 Temperature 97.6 F Pulse Rate 84 86 Respiratory 18 18 Rate Blood Pressure 176/80 180/83 O2 Sat by Pulse 94 L 95 Oximetry Medical Decision Making - Medical Decision Making 75-year-old female presents to emergency department with chief complaint of left hip pain. Mechanical trip and fall. She is neurovascularly intact. Left mid femur tenderness. X-ray shows an acute, displaced fracture of the left mid shaft of the femur. I spoke with the [facility] renee who recommended admission under Dr. Palmer. He also recommended knee immobilizer. Patient was given 100 g of fentanyl. She was given 4 mg of morphine here in addition to 0.5 mg of Dilaudid. Patient is symptomatically and control. She will be admitted for further medical management. Case discussed with - EKG Data EKG Comments: First-degree AV block Sinus rhythm Ventricular rate 83, GA 214, QRS 90, QTC 434. Disposition Clinical Impression: Fall, Left femoral shaft fracture Disposition: ADMITTED IP TO THIS HOSP Condition: Fair Is patient prescribed a controlled substance at d/c from ED?: No Referrals: Gianni Lucero MD [Primary Care Provider] - 1-2 days Time of Disposition: 15:22
[2021-04-25] MEDS ORDERED: HYDROmorphone 0.5 MG/0.5 ML SYRINGE IVP STA (14:29)
--- NOTE | 2021-04-25 15:13 | XR ---
RESULT: HISTORY: fall TECHNIQUE: 2 views of the left hip. 2 views of the left femur. COMPARISON: None. FINDINGS: Left hip: There is no acute fracture or dislocation of the left hip. The left hip joint is grossly pr eserved. Left femur: There is mildly displaced and overriding fracture of the left femur mid shaft. No evidenc e of dislocation. IMPRESSION: Left femur midshaft fracture. Otherwise no acute fracture of the left hip.
[2021-04-25] MEDS ORDERED: LORazepam 2 MG/ML INJ IV PRN (15:19)
[2021-04-25] MEDS ORDERED: ONDANSETRON 4 MG/2 ML VIAL IVP PRN (15:19)
[2021-04-25] MEDS ORDERED: NALOXONE 0.4 MG/ML 1 ML VIAL IV PRN (15:19)
[2021-04-25 15:21] LABS: Calcium 9.4 mg/dL (8.4-10.2); Potassium 4.2 mmol/L (3.5-5.1); Total Bilirubin 0.1 mg/dL (0.2-1.3); Total Protein 6.5 g/dL (6.3-8.2)
[2021-04-25 15:22] LABS: Basophils # (A) 0.1 k/uL (0-0.2); Basophils % (A) 1 %; Eosinophils # (A) 0.2 k/uL (0-0.7); Eosinophils % (A) 3 %; HCT 36.3 % (34.0-46.0); HGB 12.8 gm/dL (11.4-16.0); Lymphocytes # (A) 1.7 k/uL (1.0-4.8); Lymphocytes % (A) 24 %; MCH 32.8 pg (25.0-35.0); MCHC 35.3 g/dL (31.0-37.0); MCV 92.9 fL (80.0-100.0); Monocytes # (A) 0.4 k/uL (0-1.0); Monocytes % (A) 5 %; Neutrophils # (A) 4.6 k/uL (1.3-7.7); Neutrophils % (A) 66 %; Platelet Count 232 k/uL (150-450); RBC 3.91 m/uL (3.80-5.40); RDW 12.7 % (11.5-15.5)
[2021-04-25 15:31] LABS: INR 0.9 (<1.2); Partial Thromboplastin Time 21.8 sec (22.0-30.0); Prothrombin Time 10.2 sec (9.0-12.0)
[2021-04-25 15:41] LABS: Appearance,Urine Clear (Clear); Bilirubin,Urine Negative (Negative); Blood,Urine Negative (Negative); Color,Urine Yellow; Glucose,Urine (UA) Negative (Negative); Ketones,Urine Negative (Negative); Leukocyte Esterase,Urine Negative (Negative); Nitrite,Urine Negative (Negative); Protein,Urine Negative (Negative); Specific Gravity,Urine 1.014 (1.001-1.035); Urobilinogen,Urine <2.0 mg/dL (<2.0)
--- NOTE | 2021-04-25 16:23 | XR ---
EXAMINATION TYPE: XR chest 1V DATE OF EXAM: 04/25/2021 COMPARISON: 01/05/2018. HISTORY: Chest pain TECHNIQUE: Single frontal view of the chest is obtained. FINDINGS: The lungs are hypoaerated. There is mild right greater than left interstitial prominence. No pleural effusion, or pneumothorax seen. The cardiac silhouette size is within normal limits. Th e osseous structures are intact. Cholecystectomy clips again seen. IMPRESSION: Mild interstitial prominence, suggestive of edema/atelectasis. Superimposed infiltrate is better excluded clinically.
[2021-04-25] MEDS: SODIUM CHLORIDE 0.9% 1,000 ML IV SCH (16:27)
[2021-04-25] MEDS: MORPHINE SULFATE 4 MG/ML SYRINGE IV PRN (16:30)
--- NOTE | 2021-04-25 17:33 | P.HPOR ---
History of Present Illness H&P Date: 04/25/21 Chief Complaint: Left thigh pain The patient's a 75-year-old female was coming the ambulatory presents after falling earlier today at home injuring her left thigh. After the fall she was unable to bear weight. Normally she ambulates without assistive devices. She had no loss of consciousness. Review of Systems Musculoskeletal: Reports as per HPI Past Medical History Past Medical History: Chest Pain / Angina, Hypertension, Osteoarthritis (OA) Additional Past Medical History / Comment(s): colitis History of Any Multi-Drug Resistant Organisms: None Reported Past Surgical History: Back Surgery Additional Past Surgical History / Comment(s): RIGHT TOTAL KNEE, RIGHT AND LEFT FootSURGERY, RIGHT ELBOW, Past Anesthesia/Blood Transfusion Reactions: No Reported Reaction Past Psychological History: Depression Smoking Status: Never smoker Past Alcohol Use History: None Reported Past Drug Use History: None Reported - Past Family History Mother Family Medical History: Cancer Additional Family Medical History / Comment(s): BREAST CANCER Medications and Allergies Home Medications Medication Instructions Recorded Confirmed Type Alendronate Sodium 70 mg PO SA 12/18/15 04/25/21 History Gabapentin 600 mg PO HS 12/18/15 04/25/21 History Ibuprofen [Motrin] 800 mg PO Q12H 12/18/15 04/25/21 History Sertraline [Zoloft] 100 mg PO DAILY 12/18/15 04/25/21 History Zolpidem [Ambien] 10 mg PO HS 12/18/15 04/25/21 History Calcium Carbonate/Vitamin D3 1 tab PO BID 12/28/15 04/25/21 History [Calcium 600-Vit D3 400 Tablet] Cyclobenzaprine [Flexeril] 5 mg PO HS 12/28/15 04/25/21 History Cyanocobalamin [Vitamin B-12] 2,500 mcg PO DAILY 03/17/17 04/25/21 History Metoprolol Succinate (ER) [Toprol 25 mg PO DAILY 01/05/18 04/25/21 History Xl] cycloSPORINE [Restasis] 1 drop BOTH EYES BID 01/05/18 04/25/21 History Multivit-Min/Iron/Folic/Lutein 1 tab PO DAILY 04/25/21 04/25/21 History [Centrum Silver Women Tablet] Allergies Allergy/AdvReac Type Severity Reaction Status Date / Time No Known Allergies Allergy Verified 04/25/21 16:14 Physical Examination - Fracture left femur Appearance: swelling (Moderate swelling left thigh, compartments soft) Compartments: soft Distal extremity neurovascularly intact: Yes Proximal joint involvement: No Distal joint involvement: No Other injury: tendon injury: no, ligament injury: no, vascular injury: no, nerve injury: no Results Alert and oriented 4 Nontender cervical, thoracic, and lumbar spine, no step-off No point tenderness about the upper extremities Pelvis stable to external rotation stress. Painless logroll right hip Marked guarding left leg Nontender left knee and ankle Neurovascular exam intact in the lower extremities - Labs Labs: Abnormal Lab Results - Last 24 Hours (Table) 04/25/21 04/25/21 Range/Units 14:51 14:51 APTT 21.8 L (22.0-30.0) sec Chloride 108 H (98-107) mmol/L BUN 24 H (7-17) mg/dL Glucose 119 H (74-99) mg/dL Total Bilirubin 0.1 L (0.2-1.3) mg/dL H & H 04/25/21 Range/Units 14:51 Hgb 12.8 (11.4-16.0) gm/dL Hct 36.3 (34.0-46.0) % Coagulation 04/25/21 Range/Units 14:51 INR 0.9 (<1.2) Result Diagrams: 04/25/21 14:51 04/25/21 14:51 - Diagnostic results Hip x-ray: image reviewed (Displaced left midshaft femur fracture) Assessment and Plan Assessment: Displaced left midshaft femur fracture Obesity Plan: I talked with the patient regarding her condition and recommend proceeding with surgical intervention. We will plan to proceed with retrograde nailing of her left shaft femur fracture. Risks and benefits discussed at length layman's terms. We will institute DVT prophylaxis. Time with Patient: Greater than 30
[2021-04-25] MEDS: HYDROmorphone 0.5 MG/0.5 ML SYRINGE IVP PRN ×2 (19:19→22:23)
[2021-04-25] MEDS: HEPARIN SODIUM,PORCINE/PF 5,000 UNIT/0.5 ML SYRINGE SQ SCH (21:28)
[2021-04-26] MEDS: MORPHINE SULFATE 4 MG/ML SYRINGE IV PRN ×4 (01:20→20:02)
[2021-04-26] MEDS: SODIUM CHLORIDE 0.9% 1,000 ML IV SCH ×2 (01:49→16:26)
[2021-04-26] MEDS: HYDROmorphone 0.5 MG/0.5 ML SYRINGE IVP PRN ×3 (03:32→12:21)
[2021-04-26 06:43] LABS: Basophils # (A) 0.1 k/uL (0-0.2); Basophils % (A) 1 %; Eosinophils # (A) 0.1 k/uL (0-0.7); Eosinophils % (A) 2 %; HCT 34.7 % (34.0-46.0); HGB 11.8 gm/dL (11.4-16.0); Lymphocytes # (A) 1.5 k/uL (1.0-4.8); Lymphocytes % (A) 24 %; MCH 31.8 pg (25.0-35.0); MCHC 33.9 g/dL (31.0-37.0); Mean Platelet Volume 7.9; Monocytes # (A) 0.4 k/uL (0-1.0); Monocytes % (A) 6 %; Neutrophils % (A) 66 %; Platelet Count 217 k/uL (150-450); RDW 12.9 % (11.5-15.5); WBC 6.1 k/uL (3.8-10.6)
[2021-04-26 06:51] LABS: ALT 21 U/L (4-34); AST 37 U/L (14-36); African American GFR (CKD) >90 (>60 ml/min/1.73 sqM); Albumin 3.4 g/dL (3.5-5.0); Albumin/Globulin Ratio 1.4; Alkaline Phosphatase 71 U/L (38-126); Anion Gap 3 mmol/L; Blood Urea Nitrogen 18 mg/dL (7-17); Calcium 8.6 mg/dL (8.4-10.2); Carbon Dioxide 29 mmol/L (22-30); Chloride 107 mmol/L (98-107); Globulin 2.5 g/dL; Glucose 123 mg/dL (74-99); Non-African American GFR(CKD) 88 (>60 ml/min/1.73 sqM); Potassium 4.3 mmol/L (3.5-5.1); Sodium 139 mmol/L (137-145); Total Bilirubin 0.3 mg/dL (0.2-1.3); Total Protein 5.9 g/dL (6.3-8.2)
[2021-04-26 07:01] LABS: Prothrombin Time 10.8 sec (9.0-12.0)
[2021-04-26] MEDS: HEPARIN SODIUM,PORCINE/PF 5,000 UNIT/0.5 ML SYRINGE SQ SCH ×2 (07:50→20:02)
[2021-04-26] MEDS ORDERED: MIDAZOLAM 2 MG/2 ML VIAL ONE (10:05)
[2021-04-26] MEDS ORDERED: fentaNYL (PF) 50 MCG/ML 2 ML AMP ONE (10:05)
[2021-04-26] MEDS ORDERED: PROPOFOL 10 MG/ML 20 ML VIAL IV ONE (10:05)
[2021-04-26] MEDS ORDERED: SUCCINYLCHOLINE CHLORIDE 100 MG/5 ML SYR IV ONE (10:05)
[2021-04-26] MEDS ORDERED: PHENYLEPHRINE-0.9% NACL SYG 1,000 MCG/10 ML SYRINGE ONE (10:05)
[2021-04-26] MEDS ORDERED: LIDOCAINE 1% INJ 10MG/ML (20 ML MDV) ONE (10:05)
[2021-04-26] MEDS ORDERED: IV FLUID CONTINUATION 1,000 ML IV ONE (10:10)
[2021-04-26] MEDS ORDERED: SODIUM CHLORIDE 0.9% 100 ML with ceFAZolin 2,000 MG IV ONE ×2 (10:10)
[2021-04-26] MEDS ORDERED: LACTATED RINGERS 1,000 ML IV SCH (10:15)
[2021-04-26] MEDS ORDERED: LACTATED RINGERS 1,000 ML IV ONE (11:34)
--- NOTE | 2021-04-26 12:07 | P.OP ---
Date of Procedure: 04/26/21 Preoperative Diagnosis: Displaced left midshaft femur fracture Postoperative Diagnosis: Same Procedure(s) Performed: Retrograde intramedullary nailing left displaced midshaft femur fracture Implants: [place] 10 mm x 36 cm retrograde intramedullary nail Anesthesia: MISSY Surgeon: David Magana Loading Dock Hand #1: Albert Javier Estimated Blood Loss (ml): 100 Pathology: none sent Condition: stable Disposition: PACU Indications for Procedure: The patient's a 75-year-old female who presents with a closed displaced left midshaft femur fracture after a fall. A discussion of risks and benefits of operative intervention was made with patient and her family. She opted to proceed. Operative risks to include infection, neurovascular injury, development of blood clots, possible development of nonunion/malunion need for subsequent procedures was discussed. Informed consent was obtained. Operative Findings: As below Description of Procedure: The patient was brought to the operating room, and after induction of general anesthesia the left lower extremity was prepped and draped in normal fashion. A sterile bump was placed under the left thigh. A 4 cm incision was then made starting at the inferior pole patella distally. Skin and subcu tissues were divided sharply. Electrocautery was used for hemostasis. The peritenon was split. The patellar tendon was split in its midline. A self-retaining retractor was placed. A threaded guidepin was placed 1 cm anterior to the posterior cruciate ligament origin in the midline of the distal femur on the AP and lateral views with the aid of fluoroscopy. The distal reamer was then inserted 8 cm. A ball-tipped guidewire was then inserted in the intramedullary canal and this was verified with fluoroscopy. The canal was then reamed up to 11.5 mm. A 10 mm x 36 cm retrograde nail was then gently inserted over the guidewire and then this was removed. Fluoroscopy was used to aid in this. There was good reduction at the fracture site. The distal static locking screws were placed the appropriate length utilizing the appropriate guide. The proximal dynamic locking screw was placed using a freehand technique with the aid of fluoroscopy. Final fluoroscopic view showed adequate reduction of the fracture and placement of the implant. The wounds were irrigated normal saline. The toe tendon was reapproximated with interrupted 0 Vicryl sutures. The subcu change tissues reapproximated interrupted 2-0 Vicryl sutures. The skin was reapproximated with ines. A sterile dressing was applied. The patient was awoken from general anesthesia and transferred to recovery room in stable condition. Blood loss was estimated 100 mL. case were incurred. Sponge and needle counts were correct at the end of the case.
[2021-04-26] MEDS ORDERED: HYDROmorphone 0.5 MG/0.5 ML SYRINGE IVP ONE (12:25)
[2021-04-26] MEDS ORDERED: HYDROcodone/APAP 5-325MG 1 EACH TAB PO PRN (12:43)
[2021-04-26] MEDS ORDERED: MAGNESIUM HYDROXIDE 2,400 MG/10 ML CUP PO PRN (12:44)
[2021-04-26] MEDS: cycloSPORINE 0.05% OPHTH 0.4 ML DROPERETTE BOTH EYES SCH ×2 (13:06→20:03)
[2021-04-26] MEDS: METOPROLOL SUCCINATE (ER) 25 MG TAB.ER.24H PO SCH (13:06)
[2021-04-26] MEDS: SERTRALINE 100 MG TAB PO SCH (13:06)
--- NOTE | 2021-04-26 14:36 | XR ---
Limited left femur, fluoroscopy history: Fracture 4 minutes 6 seconds fluoroscopy support supplied to the referring clinician, 4 intraoperative C-arm i mages document the procedure IMPRESSION: See dictated report from orthopedic surgery
[2021-04-26] MEDS: CYCLOBENZAPRINE 5 MG TAB PO SCH (20:03)
[2021-04-26] MEDS: GABAPENTIN 300 MG CAP PO SCH (20:03)
[2021-04-26] MEDS: ZOLPIDEM 10 MG TAB PO SCH (20:03)
[2021-04-27] MEDS: MORPHINE SULFATE 4 MG/ML SYRINGE IV PRN (03:40)
[2021-04-27 07:53] LABS: Basophils % (A) 0 %; Eosinophils % (A) 0 %; HCT 32.3 % (34.0-46.0); HGB 10.7 gm/dL (11.4-16.0); Lymphocytes # (A) 1.4 k/uL (1.0-4.8); Lymphocytes % (A) 20 %; MCH 31.2 pg (25.0-35.0); MCHC 33.2 g/dL (31.0-37.0); Mean Platelet Volume 8.6; Monocytes # (A) 0.4 k/uL (0-1.0); Monocytes % (A) 6 %; Neutrophils % (A) 73 %; Platelet Count 203 k/uL (150-450); RBC 3.44 m/uL (3.80-5.40); RDW 12.9 % (11.5-15.5); WBC 6.9 k/uL (3.8-10.6)
[2021-04-27] MEDS: SODIUM CHLORIDE 0.9% 1,000 ML IV SCH ×2 (08:13→21:09)
[2021-04-27] MEDS: HEPARIN SODIUM,PORCINE/PF 5,000 UNIT/0.5 ML SYRINGE SQ SCH ×2 (08:16→21:08)
[2021-04-27] MEDS: cycloSPORINE 0.05% OPHTH 0.4 ML DROPERETTE BOTH EYES SCH ×2 (08:16→21:09)
[2021-04-27] MEDS: SERTRALINE 100 MG TAB PO SCH (08:16)
[2021-04-27] MEDS: METOPROLOL SUCCINATE (ER) 25 MG TAB.ER.24H PO SCH (08:16)
[2021-04-27] MEDS: SENNOSIDES 8.6 MG TAB PO SCH (08:16)
--- NOTE | 2021-04-27 10:00 | P.PN ---
Subjective Progress Note Date: 04/27/21 Principal diagnosis: Status post retrograde intramedullary nail left midshaft femur fracture Patient was evaluated today at bedside, she is resting comfortably in her hospital bed. She does note some occasional discomfort in the left lower extremity. She has not been up with physical therapy at this time. Urinary catheter is still in place this time. Patient currently denies any headaches, lightheadedness, chest pain or shortness of breath. Objective - Vital Signs Vital signs: Vital Signs Temp 98.4 F 04/27/21 07:34 Pulse 105 H 04/27/21 07:34 Resp 20 04/27/21 07:34 BP 137/67 04/27/21 07:34 Pulse Ox 94 L 04/27/21 07:34 Intake & Output 04/26/21 04/27/21 04/27/21 18:59 06:59 18:59 Intake Total 1550 1100 Output Total 1625 700 Balance -75 400 Intake: IV 1500 Intake, IV Titration 50 950 Amount Sodium Chloride 0.9% 1, 900 000 ml @ 75 mls/hr IV . [id number] [place] Rx#:[id number] ceFAZolin 2 gm In Sodium 50 50 Chloride 0.9% 50 ml @ 100 mls/hr IVPB Q8HR [facility] Rx# :[id number] Oral 150 Output: Urine 1475 700 Estimated Blood Loss 150 Other: Voiding Method Indwelling Catheter Indwelling Catheter Indwelling Catheter - Exam Left lower extremity: Postoperative dressing is in good position and condition, the Keyur bandage is also in good position and condition. Patient is able to wiggle the toes, plantar flexion, dorsiflexion, EHL, FHL are intact. Range of motion of the knee and hip were not assessed. Sensation to light touch throughout the extremity is intact. The calf is soft, no tenderness with palpation. Dorsalis pedis pulses 2+ - Labs CBC & Chem 7: 04/27/21 07:31 04/26/21 06:19 Labs: Abnormal Lab Results - Last 24 Hours (Table) 04/27/21 Range/Units 07:31 RBC 3.44 L (3.80-5.40) m/uL Hgb 10.7 L (11.4-16.0) gm/dL Hct 32.3 L (34.0-46.0) % Assessment and Plan Assessment: Postoperative day #1 status post retrograde intramedullary nail for left midshaft displaced femur fracture Acute blood loss anemia, expected surgical outcome Plan: Pain control, continue use of oral medication. IV medication for breakthrough pain GI and DVT prophylaxis, continue with current medication Ferrous sulfate 325 mg twice a day for anemia Encourage incentive spirometer Dressing change 04/28/2021 Ice and elevate the extremity often 50% weightbearing with walker PT/OT evaluation Other medical specialty recommendations Discharge planning: Depending on how patient progresses will determine home health care at home versus subacute rehab. Patient is very adamant about going home. Time with Patient: Less than 30
[2021-04-27] MEDS: FERROUS SULFATE 325 MG TAB PO SCH ×2 (11:13→15:38)
[2021-04-27] MEDS: HYDROcodone/APAP 7.5-325MG 1 EACH TAB PO PRN (15:37)
--- NOTE | 2021-04-27 18:34 | ECHOF ---
Referral Reason:cardiac clearance MEASUREMENTS -------- HEIGHT: 162.6 cm WEIGHT: 95.3 kg BP: 133/69 IVSd: 1.1 cm (0.6 - 1.1) LVIDd: 3.4 cm (3.9 - 5.3) LVPWd: 0.8 cm (0.6 - 1.1) EDV(Teich): 47 ml IVSs: 1.3 cm LVIDs: 2.8 cm LVPWs: 0.8 cm %IVS Thck: 18 % ESV(Teich): 30 ml EF(Teich): 36 % %FS: 17 % SV(Teich): 17 ml LALs A4C: 4.9 cm LAAs A4C: 19.1 cm LAESV A-L A4C: 64 ml LAESV MOD A4C: 60 ml LALs A2C: 4.7 cm LAAs A2C: 16.8 cm LAESV A-L A2C: 51 ml LAESV MOD A2C: 48 ml LAESV(A-L): 58 ml LAESV Index (A-L): 28.95 ml/m Ao Diam: 2.6 cm (2.0 - 3.7) LA Diam: 3.8 cm (2.7 - 3.8) AV Cusp: 1.4 cm (1.5 - 2.6) EPSS: 0.2 cm MV E [place]: 1.00 m/s MV DecT: 178 ms MV Dec [place]: 5.6 m/s MV A [place]: 0.98 m/s MV E/A Ratio: 1.03 MV PHT: 52 ms TR Vmax: 2.34 m/s TR maxP.98 mmHg RAP: 5.00 mmHg RVSP: 26.98 mmHg MV EF SLOPE: 61.88 mm/s (70 - 150) MV EXCURSION: 15.62 mm (> 18.000) FINDINGS -------- Sinus rhythm. This was a technically good study. LV size, wall thickness and systolic function are normal, with an EF greater than 55%. The left wally tricular size is normal. The right ventricle is normal in size. LA is midly dilated 29-33ml/m2. The right atrial size is normal. The aortic valve is trileaflet, and appears structurally normal. No aortic stenosis or regurgitation. Mild mitral regurgitation is present. Mild tricuspid regurgitation present. Right ventricular systolic pressure is normal at < 35 mmHg. There is no pulmonic regurgitation present. There is no pericardial effusion. CONCLUSIONS -------- 1. LV size, wall thickness and systolic function are normal, with an EF greater than 55%. 2. The left ventricular size is normal. 3. The right ventricle is normal in size. 4. The right atrial size is normal. 5. The aortic valve is trileaflet, and appears structurally normal. No aortic stenosis or regurgitati on. 6. Mild mitral regurgitation is present. 7. Mild tricuspid regurgitation present. 8. There is no pericardial effusion. LIME HIDE INSPECTOR: Jocelyn Rodriguez RDCS
--- NOTE | 2021-04-27 19:02 | P.CONS ---
History of Present Illness - Reason for Consult Consult date: 04/27/21 - History of Present Illness Danielle Ko, is a 75-year-old female who presented to [facility] emergency room after sustaining a fall and complaining of left hip pain, she was evaluated in the emergency room, vital examination on presentation reveals a temperature of 97.6 pulse 84 respiration 18 and blood pressure 176/80 pulse ox 94% on room air laboratory data revealed a white blood count of 7.0 hemoglobin 12.8 platelet count 232 BUN 24 creatinine 0.87 urine analysis was clear, x-ray of the left femur revealed evidence of midshaft fracture, patient was admitted to medical floor under orthopedic surgery service, medical consultation was requested for management while hospitalized. EKG on presentation revealed sinus rhythm with first-degree AV block, otherwise normal EKG. Past medical history is significant for history of hypertension, history of depression, history of osteoporosis, history of vitamin D deficiency. On review of systems Patient was seen and examined on the medical floor, she is alert and oriented x 3 in no distress, she is complaining of pain in the left hip area otherwise she denies any complaints there is no fever or chills no headache or dizziness no chest pain no shortness of breath no palpitation no cough no nausea or vomiting no abdominal pain no diarrhea no blood in the stools no burning with urination no frequency or urgency and no hematuria, there is no weakness or numbness in any of the extremities no change in vision speech or gait. Past Medical History Past Medical History: Chest Pain / Angina, Hypertension, Osteoarthritis (OA) Additional Past Medical History / Comment(s): colitis History of Any Multi-Drug Resistant Organisms: None Reported Past Surgical History: Back Surgery Additional Past Surgical History / Comment(s): RIGHT TOTAL KNEE, RIGHT AND LEFT FootSURGERY, RIGHT ELBOW, Past Anesthesia/Blood Transfusion Reactions: No Reported Reaction Past Psychological History: Depression Smoking Status: Never smoker Past Alcohol Use History: None Reported Past Drug Use History: None Reported - Past Family History Mother Family Medical History: Cancer Additional Family Medical History / Comment(s): BREAST CANCER Medications and Allergies Home Medications Medication Instructions Recorded Confirmed Type Alendronate Sodium 70 mg PO SA 12/18/15 04/25/21 History Gabapentin 600 mg PO HS 12/18/15 04/25/21 History Ibuprofen [Motrin] 800 mg PO Q12H 12/18/15 04/25/21 History Sertraline [Zoloft] 100 mg PO DAILY 12/18/15 04/25/21 History Zolpidem [Ambien] 10 mg PO HS 12/18/15 04/25/21 History Calcium Carbonate/Vitamin D3 1 tab PO BID 12/28/15 04/25/21 History [Calcium 600-Vit D3 400 Tablet] Cyclobenzaprine [Flexeril] 5 mg PO HS 12/28/15 04/25/21 History Cyanocobalamin [Vitamin B-12] 2,500 mcg PO DAILY 03/17/17 04/25/21 History Metoprolol Succinate (ER) [Toprol 25 mg PO DAILY 01/05/18 04/25/21 History Xl] cycloSPORINE [Restasis] 1 drop BOTH EYES BID 01/05/18 04/25/21 History Multivit-Min/Iron/Folic/Lutein 1 tab PO DAILY 04/25/21 04/25/21 History [Centrum Silver Women Tablet] Allergies Allergy/AdvReac Type Severity Reaction Status Date / Time No Known Allergies Allergy Verified 04/25/21 16:14 Physical Exam Vitals: Vital Signs Temp Pulse Pulse Resp BP Pulse Ox 04/27/21 07:34 98.4 F 105 H 20 137/67 94 L 04/27/21 07:26 95 04/27/21 01:39 98.7 F 103 H 17 133/69 93 L 04/26/21 20:00 98.2 F 92 16 127/73 96 04/26/21 15:04 88 120/72 91 L 04/26/21 14:54 91 83 L 04/26/21 14:34 89 122/74 93 L 04/26/21 14:04 94 131/71 93 L 04/26/21 13:49 92 123/77 95 04/26/21 13:19 94 108/65 04/26/21 13:04 98.3 F 98 17 153/74 95 04/26/21 12:48 95 16 144/66 94 L 04/26/21 12:31 99 16 152/65 94 L 04/26/21 12:15 101 H 16 160/71 99 04/26/21 12:01 98.9 F 100 16 133/60 93 L Intake and Output 04/26/21 04/27/21 04/27/21 22:59 06:59 14:59 Intake Total 50 1100 Output Total 475 700 Balance -425 400 Intake: Intake, IV Titration 50 950 Amount Sodium Chloride 0.9% 1, 900 000 ml @ 75 mls/hr IV . [id number] [facility] Rx#:[id number] ceFAZolin 2 gm In Sodium 50 50 Chloride 0.9% 50 ml @ 100 mls/hr IVPB Q8HR [place] Rx# :[id number] Oral 150 Output: Urine 475 700 Other: Voiding Method Indwelling Catheter In general patient is alert and oriented x 3 in no distress HEENT head normocephalic and atraumatic Neck is supple no JVD no goiter no lymphadenopathy no carotid bruit Chest examination is clear to auscultation no crackles no wheezing Cardiac exam reveals regular heart sounds S1 and S2 no gallops no murmurs Abdomen is soft nontender no organomegaly with normal bowel sounds Extremity exam reveals no edema no cyanosis or clubbing Neurological examination reveals no gross focal deficits Results CBC & Chem 7: 04/27/21 07:31 04/26/21 06:19 Labs: Abnormal Lab Results - Last 24 Hours (Table) 04/27/21 Range/Units 07:31 RBC 3.44 L (3.80-5.40) m/uL Hgb 10.7 L (11.4-16.0) gm/dL Hct 32.3 L (34.0-46.0) % Assessment and Plan Plan: Fall with left midshaft femur fracture Abnormal EKG with first-degree AV block Underlying history of hypertension Underlying history of osteoporosis Evidence of anemia hemoglobin down to 10.7 today At this time patient is admitted to medical floor She underwent surgery yesterday with Dr. Magana, with the retrograde intramedullary nail Echocardiogram was ordered due to abnormal EKG Home medications reviewed and reordered Will follow during this admission for medical management
[2021-04-27] MEDS: GABAPENTIN 300 MG CAP PO SCH (21:08)
[2021-04-27] MEDS: CYCLOBENZAPRINE 5 MG TAB PO SCH (21:08)
[2021-04-27] MEDS: ZOLPIDEM 10 MG TAB PO SCH (21:08)
[2021-04-27] MEDS: CALCIUM CARB-VIT D 500 MG-5 MCG TAB PO SCH (21:09)
[2021-04-28] MEDS: CYANOCOBALAMIN 500 MCG TAB PO SCH (08:23)
[2021-04-28] MEDS: METOPROLOL SUCCINATE (ER) 25 MG TAB.ER.24H PO SCH (08:23)
[2021-04-28] MEDS: MULTIVITAMINS, THERA 1 EACH TAB PO SCH (08:23)
[2021-04-28] MEDS: FERROUS SULFATE 325 MG TAB PO SCH ×2 (08:23→18:01)
[2021-04-28] MEDS: CALCIUM CARB-VIT D 500 MG-5 MCG TAB PO SCH ×2 (08:23→20:18)
[2021-04-28] MEDS: SERTRALINE 100 MG TAB PO SCH (08:23)
[2021-04-28] MEDS: SENNOSIDES 8.6 MG TAB PO SCH (08:24)
[2021-04-28] MEDS: HEPARIN SODIUM,PORCINE/PF 5,000 UNIT/0.5 ML SYRINGE SQ SCH ×2 (08:24→20:17)
[2021-04-28] MEDS: cycloSPORINE 0.05% OPHTH 0.4 ML DROPERETTE BOTH EYES SCH ×2 (08:24→20:18)
[2021-04-28] MEDS: SODIUM CHLORIDE 0.9% 1,000 ML IV SCH ×2 (08:25→20:05)
[2021-04-28] MEDS: ACETAMINOPHEN TAB 325 MG TAB PO PRN (08:34)
--- NOTE | 2021-04-28 09:50 | P.PN ---
Subjective Progress Note Date: 04/28/21 Principal diagnosis: Status post retrograde intramedullary nail left midshaft femur fracture Patient was evaluated today at bedside, she is resting comfortably in her hospital bed. Patient states that she was having some increase in pain through the night, it has seemed to improve. She was able to get up with physical therapy, she states associated reproduce more pain. She still doesn't want to return home with home health care Patient currently denies any headaches, lightheadedness, chest pain or shortness of breath. Objective - Vital Signs Vital signs: Vital Signs Temp 99.1 F 04/28/21 07:49 Pulse 101 H 04/28/21 07:49 Resp 16 04/28/21 07:49 BP 127/70 04/28/21 07:49 Pulse Ox 91 L 04/28/21 07:49 Intake & Output 04/27/21 04/28/21 04/28/21 18:59 06:59 18:59 Output Total 800 650 Balance -800 -650 Output: Urine 800 650 Uretheral ([place]) 800 Other: Voiding Method Indwelling Catheter Indwelling Catheter # Voids 2 - Exam Left lower extremity: Postoperative dressing is in good position and condition, the Keyur bandage is also in good position and condition. Patient is able to wiggle the toes, july ntar flexion, dorsiflexion, EHL, FHL are intact. Range of motion of the knee and hip were not assessed. Sensation to light touch throughout the extremity is intact. The calf is soft, no tenderness with palpation. Dorsalis pedis pulses 2+ - Labs CBC & Chem 7: 04/27/21 07:31 04/26/21 06:19 Assessment and Plan Assessment: Postoperative day #2 status post retrograde intramedullary nail for left midshaft displaced femur fracture Acute blood loss anemia, expected surgical outcome Plan: Pain control, continue use of oral medication. IV medication for breakthrough pain GI and DVT prophylaxis, continue with current medication Ferrous sulfate 325 mg twice a day for anemia Encourage incentive spirometer Ice and elevate the extremity often 50% weightbearing with walker PT/OT evaluation Other medical specialty recommendations Discharge planning: Depending on how patient progresses will determine home health care at home versus subacute rehab. Patient is very adamant about going home. Time with Patient: Less than 30
[2021-04-28 10:17] LABS: Basophils % (A) 0 %; Eosinophils # (A) 0.1 k/uL (0-0.7); Eosinophils % (A) 2 %; HCT 29.2 % (34.0-46.0); HGB 10.4 gm/dL (11.4-16.0); Lymphocytes % (A) 14 %; MCH 32.8 pg (25.0-35.0); MCHC 35.5 g/dL (31.0-37.0); MCV 92.4 fL (80.0-100.0); Mean Platelet Volume 9.2; Monocytes # (A) 0.5 k/uL (0-1.0); Monocytes % (A) 7 %; Neutrophils # (A) 5.4 k/uL (1.3-7.7); Neutrophils % (A) 76 %; Platelet Count 193 k/uL (150-450); RBC 3.16 m/uL (3.80-5.40); RDW 12.8 % (11.5-15.5); WBC 7.1 k/uL (3.8-10.6)
[2021-04-28] MEDS: HYDROcodone/APAP 7.5-325MG 1 EACH TAB PO PRN (18:01)
[2021-04-28] MEDS: ZOLPIDEM 10 MG TAB PO SCH (20:01)
[2021-04-28] MEDS: CYCLOBENZAPRINE 5 MG TAB PO SCH (20:17)
[2021-04-28] MEDS: GABAPENTIN 300 MG CAP PO SCH (20:17)
[2021-04-29] MEDS: HYDROcodone/APAP 7.5-325MG 1 EACH TAB PO PRN (04:27)
[2021-04-29 06:40] LABS: Basophils % (A) 0 %; Eosinophils # (A) 0.3 k/uL (0-0.7); Eosinophils % (A) 5 %; HCT 27.9 % (34.0-46.0); HGB 9.6 gm/dL (11.4-16.0); Lymphocytes # (A) 1.1 k/uL (1.0-4.8); Lymphocytes % (A) 18 %; MCH 32.2 pg (25.0-35.0); MCHC 34.6 g/dL (31.0-37.0); MCV 93.1 fL (80.0-100.0); Mean Platelet Volume 8.4; Monocytes # (A) 0.4 k/uL (0-1.0); Monocytes % (A) 7 %; Neutrophils # (A) 4.5 k/uL (1.3-7.7); Neutrophils % (A) 69 %; Platelet Count 203 k/uL (150-450); RBC 2.99 m/uL (3.80-5.40); RDW 12.8 % (11.5-15.5); WBC 6.5 k/uL (3.8-10.6)
[2021-04-29 06:41] LABS: ALT 17 U/L (4-34); AST 34 U/L (14-36); African American GFR (CKD) >90 (>60 ml/min/1.73 sqM); Albumin 2.8 g/dL (3.5-5.0); Albumin/Globulin Ratio 1.2; Alkaline Phosphatase 52 U/L (38-126); Anion Gap 2 mmol/L; Blood Urea Nitrogen 16 mg/dL (7-17); Calcium 8.5 mg/dL (8.4-10.2); Carbon Dioxide 30 mmol/L (22-30); Chloride 104 mmol/L (98-107); Globulin 2.4 g/dL; Glucose 116 mg/dL (74-99); Non-African American GFR(CKD) 89 (>60 ml/min/1.73 sqM); Potassium 3.8 mmol/L (3.5-5.1); Sodium 136 mmol/L (137-145); Total Bilirubin 0.5 mg/dL (0.2-1.3); Total Protein 5.2 g/dL (6.3-8.2)
[2021-04-29] MEDS: CYANOCOBALAMIN 500 MCG TAB PO SCH (08:29)
[2021-04-29] MEDS: MULTIVITAMINS, THERA 1 EACH TAB PO SCH (08:30)
[2021-04-29] MEDS: SENNOSIDES 8.6 MG TAB PO SCH (08:30)
[2021-04-29] MEDS: FERROUS SULFATE 325 MG TAB PO SCH (08:31)
[2021-04-29] MEDS: CALCIUM CARB-VIT D 500 MG-5 MCG TAB PO SCH (08:31)
[2021-04-29] MEDS: SERTRALINE 100 MG TAB PO SCH (08:32)
[2021-04-29] MEDS: METOPROLOL SUCCINATE (ER) 25 MG TAB.ER.24H PO SCH (08:32)
[2021-04-29] MEDS: HEPARIN SODIUM,PORCINE/PF 5,000 UNIT/0.5 ML SYRINGE SQ SCH (08:35)
[2021-04-29] MEDS: cycloSPORINE 0.05% OPHTH 0.4 ML DROPERETTE BOTH EYES SCH (08:55)
[2021-04-29 09:12] VITALS: PULSE 99; TEMP 98.7
[2021-04-29 09:14] VITALS: BP 110/65; RESP 18
--- NOTE | 2021-04-29 10:51 | P.PN ---
Subjective Progress Note Date: 04/29/21 Principal diagnosis: Status post retrograde intramedullary nail left midshaft femur fracture Patient was evaluated today at bedside, she is resting comfortably in her hospital bed. Patient is doing well today. She states that the leg is feeling better. She has been up on her walker today with minimal difficulty. Patient currently denies any headaches, lightheadedness, chest pain or shortness of breath. Objective - Vital Signs Vital signs: Vital Signs Temp 98.7 F 04/29/21 08:00 Pulse 99 04/29/21 08:00 Resp 18 04/29/21 09:15 BP 110/65 04/29/21 08:00 Pulse Ox 92 L 04/29/21 08:00 Intake & Output 04/28/21 04/29/21 04/29/21 18:59 06:59 18:59 Intake Total 540 Output Total 1 Balance 540 -1 Intake: Oral 540 Output: Stool 1 Other: Voiding Method Toilet Toilet Toilet # Voids 1 1 - Exam Left lower extremity: Postoperative dressing is in good position and condition, the Keyur bandage is also in good position and condition. Patient is able to wiggle the toes, plantar flexion, dorsiflexion, EHL, FHL are intact. Range of motion of the knee and hip were not assessed. Sensation to light touch throughout the extremity is intact. The calf is soft, no tenderness with palpation. Dorsalis pedis pulses 2+ - Labs CBC & Chem 7: 04/29/21 06:03 04/29/21 06:03 Labs: Abnormal Lab Results - Last 24 Hours (Table) 04/29/21 04/29/21 Range/Units 06:03 06:03 RBC 2.99 L (3.80-5.40) m/uL Hgb 9.6 L (11.4-16.0) gm/dL Hct 27.9 L (34.0-46.0) % Sodium 136 L (137-145) mmol/L Glucose 116 H (74-99) mg/dL Total Protein 5.2 L (6.3-8.2) g/dL Albumin 2.8 L (3.5-5.0) g/dL Assessment and Plan Assessment: Postoperative day #3 status post retrograde intramedullary nail for left midshaft displaced femur fracture Acute blood loss anemia, expected surgical outcome Plan: Pain control, plan for discharge home on Bar[place] 7.5 mg/325 mg GI and DVT prophylaxis, plan for discharge home on aspirin 325 mg daily for 2 weeks Ferrous sulfate 325 mg twice a day for anemia Encourage incentive spirometer Ice and elevate the extremity often 50% weightbearing with walker PT/OT evaluation Other medical specialty recommendations Discharge planning: plan for discharge home today with home health care Time with Patient: Less than 30
--- NOTE | 2021-04-29 11:00 | P.DS ---
Providers Date of admission: 04/25/21 15:16 Expected date of discharge: 04/29/21 Attending physician: David Magana Consults: 04/26/21 06:56 Consult Physician Routine Consulting Provider: Gianni Lucero Reason/Comments: Medical Management Do you want consulting provider notified?: Yes Primary care physician: Gianni Lucero [facility] Course: Date of admission: 04/25/2021 Date of discharge: 04/29/2021 Admission diagnosis: Displaced left midshaft femur fracture Discharge diagnosis: Status post retrograde intramedullary nail left midshaft femur fracture Attending physician: Dr. Magana Surgical procedures: Retrograde intramedullary nail left midshaft femur fracture Brief history: Patient is a 75-year-old female who presented to [facility] emergency room on 04/25/2021 after injuring her left lower extremity. It was determined that she had a displaced midshaft femur fracture on the left-hand side. Patient was admitted to our orthopedic care with plan for surgical intervention. Consults were placed for internal medicine for management and clearance prior to surgery. She underwent surgery on 04/26/2021. Hospital course: Details of patient's surgery can be found in operative report. Patient tolerated the procedure well and was subsequently transported to orthopedic floor. Patient's orthopeidc and medical care was provided daily. Patient had daily laboratory tests performed for evaluation of overall blood counts. Patient had daily physical therapy to include strengthening range of motion as well as education with walker ambulation. Patient was treated with heparin for their postoperative DVT prophylaxis during their inpatient stay. Patient was noted to have a relatively uneventful postoperative course. Patient reported satisfactory pain control with oral pain medications by postoperative day 0. Patient showed satisfactory progress with physical therapy. Patient moved steadily through the program and had no difficulty meeting the goals by postoperative day 3. Given patient's otherwise satisfactory course and having met physical therapy goals, plan is to discharge patient home on postoperative day 3. Discharge condition/disposition: Patient will be discharged home in stable condition. Discharge medications: Instructions are given on resumption of patient's normal daily medications per primary care recommendation, in addition patient will be prescribed Hodgen 7.5 mg/25 mg, Colace 100, aspirin 325 mg, ferrous sulfate 325 mg. Discharge instructions: 1. Wound care and infection precautions, keep incision dry and covered while showering, no lotions, creams, moisturizers. No soaking, tubs, pools, hottubs. Do not scrub over the incision. 2. 50% weight-bear as tolerated with walker / cane until follow-up. 3. Ice and elevate when necessary. Do not exceed 20 minutes per hour with ice pack. 4. Utilize compression sleeve until seen at first follow up appointment. 5. Visiting nursing care. 6. Home physical therapy. 7. Pain meds and anticoagulants per prescription. 8. Pain medication has potential to cause constipation. Increase oral fluid and fiber intake. Contact primary care provider if you have not had a bowel movement within 48 hours after discharge 9. No anti-inflammatory medication until discussed at first post operative visit, this including Motrin, Aleve, Mobic, Diclofenac. 10. Follow up in office at 2 weeks postop with James Javier PA-C/Zackary Forman 11. Follow up with your primary care doctor 7-10 days after discharge. 12. Contact [facility] with any questions, . Procedures: Retrograde intramedullary nail left displaced midshaft femur fracture Patient Condition at Discharge: Fair Plan - Discharge Summary Discharge Rx Participant: No New Discharge Prescriptions: New Aspirin 325 mg PO DAILY #30 tab Ferrous Sulfate [Feosol] 325 mg PO BID #30 tab HYDROcodone/APAP 7.5-325MG [Hodgen 7.5] 1 each PO Q6HR PRN #28 tab PRN Reason: Pain Docusate [Colace] 100 mg PO DAILY #30 capsule No Action Alendronate Sodium 70 mg PO SA Zolpidem [Ambien] 10 mg PO HS Sertraline [Zoloft] 100 mg PO DAILY Gabapentin 600 mg PO HS Ibuprofen [Motrin] 800 mg PO Q12H Calcium Carbonate/Vitamin D3 [Calcium 600-Vit D3 400 Tablet] 1 tab PO BID Cyclobenzaprine [Flexeril] 5 mg PO HS Cyanocobalamin [Vitamin B-12] 2,500 mcg PO DAILY cycloSPORINE [Restasis] 1 drop BOTH EYES BID Metoprolol Succinate (ER) [Toprol Xl] 25 mg PO DAILY Multivit-Min/Iron/Folic/Lutein [Centrum Silver Women Tablet] 1 tab PO DAILY Discharge Medication List Alendronate Sodium 70 mg PO SA 12/18/15 [History] Gabapentin 600 mg PO HS 12/18/15 [History] Ibuprofen [Motrin] 800 mg PO Q12H 12/18/15 [History] Sertraline [Zoloft] 100 mg PO DAILY 12/18/15 [History] Zolpidem [Ambien] 10 mg PO HS 12/18/15 [History] Calcium Carbonate/Vitamin D3 [Calcium 600-Vit D3 400 Tablet] 1 tab PO BID 12/28/15 [History] Cyclobenzaprine [Flexeril] 5 mg PO HS 12/28/15 [History] Cyanocobalamin [Vitamin B-12] 2,500 mcg PO DAILY 03/17/17 [History] Metoprolol Succinate (ER) [Toprol Xl] 25 mg PO DAILY 01/05/18 [History] cycloSPORINE [Restasis] 1 drop BOTH EYES BID 01/05/18 [History] Multivit-Min/Iron/Folic/Lutein [Centrum Silver Women Tablet] 1 tab PO DAILY 04/25/21 [History] Aspirin 325 mg PO DAILY #30 tab 04/29/21 [Rx] Docusate [Colace] 100 mg PO DAILY #30 capsule 04/29/21 [Rx] Ferrous Sulfate [Feosol] 325 mg PO BID #30 tab 04/29/21 [Rx] HYDROcodone/APAP 7.5-325MG [Hodgen 7.5] 1 each PO Q6HR PRN #28 tab 04/29/21 [Rx] Follow up Appointment(s)/Referral(s): Tari Delatorre MD [STAFF PHYSICIAN] - 05/12/21 2:30 pm Red Phillips MD [STAFF PHYSICIAN] - 2 Weeks (Please call office to make a follow up appointment on discharge. ) David Magana MD [STAFF PHYSICIAN] - 05/08/21 3:30 pm [facility] Visiting Nurse, [NON-STAFF] - Ambulatory/Diagnostic Orders: Complete Blood Count w/diff [LAB.AMB] Location: None Selected Activity/Diet/Wound Care/Special Instructions: Orthopedic discharge instructions: 1. 50% weightbearing with walker 2. Keep incisions covered and dry while showering 3. Ice and elevate extremity 4. Aspirin 325 mg daily for DVT prophylaxis 5. Follow-up at [facility] in 2 weeks Discharge Disposition: HOME WITH HOME HEALTH SERVICES
[2021-04-29 11:17] LABS: Appearance,Urine Cloudy (Clear); Bacteria,Urine Rare /hpf; Bilirubin,Urine Negative (Negative); Blood,Urine Negative (Negative); Color,Urine Yellow; Glucose,Urine (UA) Negative (Negative); Ketones,Urine Negative (Negative); Leukocyte Esterase,Urine Small (Negative); Mucus,Urine Many /hpf; Nitrite,Urine Negative (Negative); PH, Urine 6.5 (5.0-8.0); Protein,Urine 1+ (Negative); Specific Gravity,Urine 1.026 (1.001-1.035); Squamous Epithelial Cell,Urine 15 /hpf (0-4); WBC,Urine 11 /hpf (0-5)
[2021-04-29] MEDS: ACETAMINOPHEN TAB 325 MG TAB PO PRN (11:27)
--- NOTE | 2021-04-29 11:49 | P.PN ---
Subjective Progress Note Date: 04/28/21 Danielle Ko, is a 75-year-old female who presented to [facility] emergency room after sustaining a fall and complaining of left hip pain, she was evaluated in the emergency room, vital examination on presentation reveals a temperature of 97.6 pulse 84 respiration 18 and blood pressure 176/80 pulse ox 94% on room air laboratory data revealed a white blood count of 7.0 hemoglobin 12.8 platelet count 232 BUN 24 creatinine 0.87 urine analysis was clear, x-ray of the left femur revealed evidence of midshaft fracture, patient was admitted to medical floor under orthopedic surgery service, medical consultation was requested for management while hospitalized. EKG on presentation revealed sinus rhythm with first-degree AV block, otherwise normal EKG. Past medical history is significant for history of hypertension, history of depression, history of osteoporosis, history of vitamin D deficiency. On review of systems Patient was seen and examined on the medical floor, she is alert and oriented x 3 in no distress, she is complaining of pain in the left hip area otherwise she denies any complaints there is no fever or chills no headache or dizziness no chest pain no shortness of breath no palpitation no cough no nausea or vomiting no abdominal pain no diarrhea no blood in the stools no burning with urination no frequency or urgency and no hematuria, there is no weakness or numbness in any of the extremities no change in vision speech or gait. On 04/28/2021 patient is alert and oriented 3. Patient is currently postop day 1. Hemoglobin 10.4. Patient having some increased pain. Patient denies chest pain or shortness breath. Patient denies nausea vomiting or diarrhea. Patient denies any urinary burning or frequency Objective - Vital Signs Vital signs: Vital Signs Temp 99.3 F 04/28/21 14:00 Pulse 99 04/28/21 14:00 Resp 16 04/28/21 14:00 BP 128/71 04/28/21 14:00 Pulse Ox 92 L 04/28/21 14:00 Intake & Output 04/27/21 04/28/21 04/28/21 18:59 06:59 18:59 Output Total 800 650 Balance -800 -650 Output: Urine 800 650 Uretheral ([place]) 800 Other: Voiding Method Indwelling Catheter Indwelling Catheter Toilet # Voids 2 - Exam In general patient is alert and oriented x 3 in no distress HEENT head normocephalic and atraumatic Neck is supple no JVD no goiter no lymphadenopathy no carotid bruit Chest examination is clear to auscultation no crackles no wheezing Cardiac exam reveals regular heart sounds S1 and S2 no gallops no murmurs Abdomen is soft nontender no organomegaly with normal bowel sounds Extremity exam reveals no edema no cyanosis or clubbing Neurological examination reveals no gross focal deficits - Labs CBC & Chem 7: 04/29/21 06:03 04/29/21 06:03 Labs: Abnormal Lab Results - Last 24 Hours (Table) 04/28/21 Range/Units 10:02 RBC 3.16 L (3.80-5.40) m/uL Hgb 10.4 L (11.4-16.0) gm/dL Hct 29.2 L (34.0-46.0) % Assessment and Plan Plan: Fall with left midshaft femur fracture Abnormal EKG with first-degree AV block Underlying history of hypertension Underlying history of osteoporosis Evidence of anemia hemoglobin down to 10.7 today At this time patient is admitted to medical floor She underwent surgery yesterday with Dr. Magana, with the retrograde intramedullary nail Echocardiogram was ordered due to abnormal EKG Home medications reviewed and reordered Will follow during this admission for medical management
--- NOTE | 2021-04-29 11:52 | P.PN ---
Subjective Progress Note Date: 04/29/21 Danielle Ko, is a 75-year-old female who presented to [facility] emergency room after sustaining a fall and complaining of left hip pain, she was evaluated in the emergency room, vital examination on presentation reveals a temperature of 97.6 pulse 84 respiration 18 and blood pressure 176/80 pulse ox 94% on room air laboratory data revealed a white blood count of 7.0 hemoglobin 12.8 platelet count 232 BUN 24 creatinine 0.87 urine analysis was clear, x-ray of the left femur revealed evidence of midshaft fracture, patient was admitted to medical floor under orthopedic surgery service, medical consultation was requested for management while hospitalized. EKG on presentation revealed sinus rhythm with first-degree AV block, otherwise normal EKG. Past medical history is significant for history of hypertension, history of depression, history of osteoporosis, history of vitamin D deficiency. On review of systems Patient was seen and examined on the medical floor, she is alert and oriented x 3 in no distress, she is complaining of pain in the left hip area otherwise she denies any complaints there is no fever or chills no headache or dizziness no chest pain no shortness of breath no palpitation no cough no nausea or vomiting no abdominal pain no diarrhea no blood in the stools no burning with urination no frequency or urgency and no hematuria, there is no weakness or numbness in any of the extremities no change in vision speech or gait. On 04/28/2021 patient is alert and oriented 3. Patient is currently postop day 1. Hemoglobin 10.4. Patient having some increased pain. Patient denies chest pain or shortness breath. Patient denies nausea vomiting or diarrhea. Patient denies any urinary burning or frequency On 04/29/2021 patient's alert and oriented 3. Patient currently postop day 2. Hemoglobin 9.6. Patient was having low-grade temp 99.7 last night. UA positive for urinary tract infection. Patient will be discharged on Ceftin. Patient will be DC'd per orthopedic services. Patient will be discharged on aspirin 325 daily for DVT prophylaxis. At this time patient denies chest pain or shortness breath. Patient denies nausea vomiting or diarrhea. Patient denies any urinary burning or frequency Objective - Vital Signs Vital signs: Vital Signs Temp 98.7 F 04/29/21 08:00 Pulse 99 04/29/21 08:00 Resp 18 04/29/21 09:15 BP 110/65 04/29/21 08:00 Pulse Ox 92 L 04/29/21 08:00 Intake & Output 04/28/21 04/29/21 04/29/21 18:59 06:59 18:59 Intake Total 540 Output Total 1 Balance 540 -1 Intake: Oral 540 Output: Stool 1 Other: Voiding Method Toilet Toilet Toilet # Voids 1 1 - Exam In general patient is alert and oriented x 3 in no distress HEENT head normocephalic and atraumatic Neck is supple no JVD no goiter no lymphadenopathy no carotid bruit Chest examination is clear to auscultation no crackles no wheezing Cardiac exam reveals regular heart sounds S1 and S2 no gallops no murmurs Abdomen is soft nontender no organomegaly with normal bowel sounds Extremity exam reveals no edema no cyanosis or clubbing Neurological examination reveals no gross focal deficits - Labs CBC & Chem 7: 04/29/21 06:03 04/29/21 06:03 Labs: Abnormal Lab Results - Last 24 Hours (Table) 04/29/21 04/29/21 04/29/21 Range/Units 06:03 06:03 08:59 RBC 2.99 L (3.80-5.40) m/uL Hgb 9.6 L (11.4-16.0) gm/dL Hct 27.9 L (34.0-46.0) % Sodium 136 L (137-145) mmol/L Glucose 116 H (74-99) mg/dL Total Protein 5.2 L (6.3-8.2) g/dL Albumin 2.8 L (3.5-5.0) g/dL Urine Appearance Cloudy H (Clear) Urine Protein 1+ H (Negative) Ur Leukocyte Esterase Small H (Negative) Urine WBC 11 H (0-5) /hpf Ur Squamous Epith Cells 15 H (0-4) /hpf Urine Bacteria Rare H (None) /hpf Urine Mucus Many H (None) /hpf Assessment and Plan Plan: Fall with left midshaft femur fracture. Status post surgical repair postop day 2 Abnormal EKG with first-degree AV block. 2-D echo completed showing EF greater than 55% Underlying history of hypertension Underlying history of osteoporosis Anemia secondary to acute surgical blood loss Urinary tract infection. Patient will be DC'd on Ceftin
[2021-04-29] MEDS: SODIUM CHLORIDE 0.9% 1,000 ML IV SCH (11:58)
== END 2021-04-29 12:46 | disposition home health service (06) | DRG 481 ==
LOC: EC 13:01 → 4SSUR 15:16
PROVIDERS: ADMIT Orthopaedic Surgery; ATTEND Orthopaedic Surgery
PROC: 0QS936Z Reposition Left Femoral Shaft with Intramedullary Internal Fixation Device, Percutaneous Approach (ICD-10-PCS; principal; 2021-04-25)
DX: S72.302A Unspecified fracture of shaft of left femur, initial encounter for closed fracture (principal); D62 Acute posthemorrhagic anemia; N39.0 Urinary tract infection, site not specified; W01.0XXA Fall on same level from slipping, tripping and stumbling without subsequent striking against object, initial encounter; M81.0 Age-related osteoporosis without current pathological fracture; E66.9 Obesity, unspecified; Z80.3 Family history of malignant neoplasm of breast; Z68.36 Body mass index [BMI] 36.0-36.9, adult; F32.9 Major depressive disorder, single episode, unspecified; I10 Essential (primary) hypertension; I44.0 Atrioventricular block, first degree; Z79.82 Long term (current) use of aspirin; Z79.899 Other long term (current) drug therapy; E55.9 Vitamin D deficiency, unspecified; Z96.651 Presence of right artificial knee joint
CPT/HCPCS: 36415; 71045; 73502; 80053; 81001; 81003; 84484; 85025; 85610; 85730; 93005; 93306; 94760; 96372; 96374; 99285

== ENCOUNTER → 2022-02-22 | Outpatient (CLI) | payer MEDICARE, OTHER ==
--- NOTE | 2022-02-24 12:59 | MM ---
Reason for exam: screening (asymptomatic). Last mammogram was performed 1 year and 1 month ago. History: Patient is postmenopausal. Family history of breast cancer in mother at age 73. Excisional biopsy of the right breast, 1989. Physical Findings: A clinical breast exam by your physician is recommended on an annual basis and results should be correlated with mammographic findings. MG 3D Screening Mammo W/Cad Bilateral CC and MLO view(s) were taken. Prior study comparison: January 23, 2021, bilateral MG 3d screening mammo w/cad. December 03, 2019, bilateral MG 3d screening mammo w/cad. There are scattered fibroglandular densities. No significant changes when compared with prior studies. ASSESSMENT: Benign, BI-RAD 2 RECOMMENDATION: Routine screening mammogram of both breasts in 1 year.
== END | disposition home or self-care (01) ==
LOC: RADMAMWWP 15:03
PROVIDERS: ATTEND Obstetrics & Gynecology
DX: Z12.31 Encounter for screening mammogram for malignant neoplasm of breast (principal)
CPT/HCPCS: 77063; 77067

== ENCOUNTER → 2022-05-07 | Outpatient (CLI) | payer MEDICARE, OTHER ==
[2022-05-07 14:52] LABS: Basophils # (A) 0.06 X 10*3/uL (0.00-0.10); Basophils % (A) 1.4 %; Eosinophils # (A) 0.15 X 10*3/uL (0.04-0.35); Eosinophils % (A) 3.4 %; HGB 12.8 g/dL (12.0-15.0); Immature Grans, Automated 0.2 %; Lymphocytes # (A) 1.47 X 10*3/uL (0.90-5.00); Lymphocytes % (A) 33.8 %; MCH 31.1 pg (27.0-32.0); MCV 97.1 fL (80.0-97.0); Monocytes # (A) 0.41 X 10*3/uL (0.20-1.00); Monocytes % (A) 9.4 %; NRBC Per 100 WBC 0 /100 WBCS (0.0-0.0); Neutrophils # (A) 2.25 X 10*3/uL (1.80-7.70); Neutrophils % (A) 51.8 %; Platelet Count 262 X 10*3/uL (140-440); RBC 4.12 X 10*6/uL (4.10-5.20); RDW 12.8 % (11.5-14.5); WBC 4.35 X 10*3/uL (4.50-10.00)
[2022-05-07 15:26] LABS: ALT 14 U/L (8-44); AST 18 U/L (13-35); Albumin 4.3 g/dL (3.8-4.9); Albumin/Globulin Ratio 1.79 (1.60-3.17); Alkaline Phosphatase 67 U/L (41-126); BUN/Creat Ratio 26.44 Ratio (12.00-20.00); Blood Urea Nitrogen 23.8 mg/dL (9.0-27.0); Calcium 9.6 mg/dL (8.7-10.3); Carbon Dioxide 27.6 mmol/L (20.0-27.5); Chloride 104 mmol/L (96-109); Chol/HDL Ratio 3.87 Ratio; Globulin 2.4 g/dL (1.6-3.3); Glucose 105 mg/dL (70-110); LDL Cholesterol,Calculated 121.6 mg/dL (0.0-131.0); Non-African American GFR(CKD) 62.1 (60.0-200.0); Potassium 4.8 mmol/L (3.5-5.5); Sodium 141 mmol/L (135-145); Total Protein 6.7 g/dL (6.2-8.2)
[2022-05-07 15:45] LABS: Erythrocyte Sedimentation Rate 8 mm/Hr (0-30)
== END | disposition home or self-care (01) ==
LOC: LABWHC1 08:28
PROVIDERS: ATTEND Internal Medicine
DX: Z00.00 Encounter for general adult medical examination without abnormal findings (principal); E78.5 Hyperlipidemia, unspecified; I10 Essential (primary) hypertension; E55.9 Vitamin D deficiency, unspecified
CPT/HCPCS: 36415; 80053; 80061; 82306; 83036; 84439; 84443; 85025; 85652

== ENCOUNTER → 2022-09-29 | Outpatient (CLI) | payer MEDICARE, OTHER ==
[2022-09-29 09:43] LABS: Partial Thromboplastin Time 25.4 sec (22.0-30.0); Prothrombin Time 10.3 sec (9.0-12.0)
[2022-09-29 14:31] LABS: Basophils # (A) 0.05 X 10*3/uL (0.00-0.10); Basophils % (A) 1.1 %; Eosinophils # (A) 0.18 X 10*3/uL (0.04-0.35); HCT 37.3 % (37.2-46.3); HGB 12.7 g/dL (12.0-15.0); Immature Grans, Automated 0.4 %; Lymphocytes # (A) 1.81 X 10*3/uL (0.90-5.00); Lymphocytes % (A) 39.9 %; MCH 32.3 pg (27.0-32.0); MCV 94.9 fL (80.0-97.0); Mean Platelet Volume 11.1 fL (9.5-12.2); Monocytes # (A) 0.56 X 10*3/uL (0.20-1.00); Monocytes % (A) 12.3 %; NRBC Per 100 WBC 0 /100 WBCS (0.0-0.0); Neutrophils # (A) 1.92 X 10*3/uL (1.80-7.70); Neutrophils % (A) 42.3 %; Platelet Count 291 X 10*3/uL (140-440); RBC 3.93 X 10*6/uL (4.10-5.20); RDW 12.6 % (11.5-14.5); WBC 4.54 X 10*3/uL (4.50-10.00)
[2022-09-30 01:19] LABS: African American GFR (CKD) 71.9 (60.0-200.0); Albumin 4.4 g/dL (3.8-4.9); Albumin/Globulin Ratio 1.98 (1.60-3.17); Anion Gap 9.7 mmol/L (10.00-18.00); BUN/Creat Ratio 24.08 Ratio (12.00-20.00); Blood Urea Nitrogen 21.7 mg/dL (9.0-27.0); Calcium 9.6 mg/dL (8.7-10.3); Carbon Dioxide 27.7 mmol/L (20.0-27.5); Globulin 2.2 g/dL (1.6-3.3); Potassium 4.8 mmol/L (3.5-5.5); Total Bilirubin 0.3 mg/dL (0.30-1.20); Total Protein 6.6 g/dL (6.2-8.2)
== END | disposition home or self-care (01) ==
LOC: LABWHC1 08:25
PROVIDERS: ATTEND Internal Medicine
DX: Z96.659 Presence of unspecified artificial knee joint (principal)
CPT/HCPCS: 36415; 80053; 83036; 85025; 85610; 85730

== ENCOUNTER → 2023-02-24 | Outpatient (CLI) | payer MEDICARE, OTHER ==
--- NOTE | 2023-02-24 17:55 | BD ---
EXAMINATION TYPE: Axial Bone Density DATE OF EXAM: 02/24/2023 CLINICAL HISTORY: 77 years old Female. ICD-10 CODE: Z78.0 ASYMPTOMATIC [place] STATE Height: 62.5 in Weight: 212 lbs FRAX RISK QUESTIONS: History of Fracture in Adulthood: lt femur fx (more towards knee) age 75 RISK FACTORS HISTORY OF: Surgery to Spine: age 65 l spine fusion Family History of Osteoporosis: yes grandmother Active: yes Diet low in dairy products/other sources of calcium: yes Postmenopausal woman: total hysterectomy age 49 Take estrogen and/or progesterone medications: not now How long: took control for 2 years MEDICATIONS: Osteoporosis Medications: yes Which medication: Fosamax How Lon+ years Additional Medications: calcium, vit d, blood pressure meds, depression meds, arthritic pain meds, fi bromyalgia meds EXAM MEASUREMENTS: Bone mineral densitometry was performed using the Triton System. l-spine fusion age 65 lt femur fx age 75 Bone mineral density about the R hip (g/cm2): 0.976 T Score values are as follows: -----R Neck: -1.1 -----R Total: -0.3 Z Score values are as follows: -----R Neck: 0.2 -----R Total: 0.9 Bone mineral density baseline Bone mineral density about the L Wrist (g/cm2): 0.726 T Score values are as follows: -----Dist. R+U: 0.1 -----Prox. R+U: 0.8 -----Radius total: 0.9 Z Score values are as follows: -----Dist. R+U: 2.5 -----Prox. R+U: 3.3 -----Radius total: 3.3 Bone mineral density baseline FRAX%s: The graph provided illustrates a 15.0% chance for a major osteoporotic fx and a 2.4% chance f or the hips probability for fx in 10 years time. IMPRESSION: Osteopenia (T Score between -2.5 and -1). There is slightly increased risk of fracture and the patient may be considered for treatment. Re-Screen 2-5 years. NOTE: T-SCORE=SD OF THE YOUNG ADULT MEAN.
--- NOTE | 2023-02-25 08:36 | MM ---
Reason for Exam: Screening (asymptomatic). Last screening mammogram was performed 12 month(s) ago. Patient History: Menarche at age 13. First Full-Term at age 24. Left ovary removed at age 51. Right ovary removed at age 51. Hysterectomy at age 51. Postmenopausal. 1989, Excisional Biopsy on the Right side. Mother had breast cancer, age 73. Risk Values: Jodi 5 year model risk: 3.9%. NCI Lifetime model risk: 7.4%. Prior Study Comparison: 12/03/2019 Bilateral Screening Mammogram, [facility]. 01/23/2021 Bilateral Screening Mammogram, [facility]. 02/22/2022 Bilateral Screening Mammogram, [facility]. Tissue Density: The breast tissue is heterogeneously dense. This may lower the sensitivity of mammography. Findings: Analyzed By CAD. There is no suspicious group of microcalcifications or new suspicious mass in either breast. Overall Assessment: Negative, BI-RAD 1 Management: Screening Mammogram of both breasts in 1 year. A clinical breast exam by your physician is recommended on an annual basis and results should be correlated with mammographic findings. Electronically signed and approved by: Anurag Tavarez D.O.
== END | disposition home or self-care (01) ==
LOC: RADMAMWWP 07:21
PROVIDERS: ATTEND Obstetrics & Gynecology
DX: Z12.31 Encounter for screening mammogram for malignant neoplasm of breast (principal); M85.89 Other specified disorders of bone density and structure, multiple sites; Z78.0 Asymptomatic menopausal state; Z80.3 Family history of malignant neoplasm of breast
CPT/HCPCS: 77063; 77067; 77080

== ENCOUNTER 2023-10-04 09:01 | Day surgery (SDC) | payer MEDICARE, OTHER ==
[2023-09-29 14:45] VITALS: BMI 33.5
[~2023-10-04 09:01] MED LIST changes: -BACITRACIN 50,000 UNIT, POLYMYXIN B 500,000 UNIT in SODIUM CHLORIDE 0.9% IRRIGATIO 1,00... IRRIGATION ONE; +LACTATED RINGERS 1,000 ML IV SCH; +LIDOCAINE 1% (10MG/ML) FOR IV START INTRADERMA PRN; -LIDOCAINE 1% 20 ML VIAL (10MG/ML) FOR IV START INTRADERMA PRN; -ONDANSETRON 4 MG/2 ML VIAL IVP PRN; -ceFAZolin 2 GM in SODIUM CHLORIDE 0.9% 100 ML IVPB ONE
[2023-10-04 09:59] VITALS: TEMP 97.5
[2023-10-04] MEDS ORDERED: PROPOFOL 10 MG/ML 20 ML VIAL IV ONE (10:23)
[2023-10-04] MEDS ORDERED: LIDOCAINE 1% INJ 10MG/ML (20 ML MDV) ONE (10:23)
--- NOTE | 2023-10-04 10:38 | P.PCN ---
Date of Procedure: 10/04/23 Procedure(s) Performed: BRIEF HISTORY: Patient is a 77-year-old pleasant white female scheduled for an elective colonoscopy as a part of chronic diarrhea for the last several months duration. Has been having intermittent lower abdominal pain but no bleeding. PROCEDURE PERFORMED: Colonoscopy with random biopsies. PREOPERATIVE DIAGNOSIS: Chronic diarrhea.. IV sedation per Anesthesia. PROCEDURE: After informed consent was obtained, the patient, was brought into the endoscopy unit. IV sedation was administered by Anesthesia under continuous monitoring. Digital rectal examination was normal. Initially the Olympus CF-160 flexible video colonoscope was then inserted in the rectum, gradually advanced into the cecum without any difficulty. Careful examination was performed as the scope was gradually being withdrawn. Ileocecal valve and the appendiceal orifice were visualized and appeared normal. Prep was excellent. Mucosa of the cecum, ascending colon, transverse colon, descending colon, sigmoid colon, and rectum appeared normal. Random biopsies were done from ascending and descending colon to rule out microscopic/collagenous colitis. Retroflexion was performed in the rectum and no lesions were seen. The patient tolerated the procedure well. IMPRESSION: Normal-appearing colon from rectum to cecum with no evidence of colorectal neoplasia . RECOMMENDATIONS: Findings of this examination were discussed with the patient as well as a family. She was advised to follow with the biopsy results and she'll be seen in office in 3-4 weeks.. In the meantime she was advised to use [id number] Imodium 1 tablet 2 or 3 times daily as needed based on the symptoms.
[2023-10-04 11:13] VITALS: BP 157/74; PULSE 79; RESP 16
== END 2023-10-04 11:30 | disposition home or self-care (01) ==
LOC: ORWHC2ENDO 09:01
PROVIDERS: ATTEND Internal Medicine Gastroenterology
DX: K52.832 Lymphocytic colitis (principal); K52.9 Noninfective gastroenteritis and colitis, unspecified; I10 Essential (primary) hypertension; F32.A Depression, unspecified; Z79.899 Other long term (current) drug therapy; Z87.19 Personal history of other diseases of the digestive system; Z90.710 Acquired absence of both cervix and uterus
CPT/HCPCS: 88305; 45380; J2001; J2704

== ENCOUNTER → 2024-01-26 | Outpatient (CLI) | payer MEDICARE, OTHER ==
[2024-01-26 15:30] LABS: Basophils # (A) 0.05 X 10*3/uL (0.00-0.10); Basophils % (A) 1.1 %; Eosinophils # (A) 0.15 X 10*3/uL (0.04-0.35); Eosinophils % (A) 3.2 %; HCT 38.5 % (37.2-46.3); HGB 12.6 g/dL (12.0-15.0); Lymphocytes # (A) 1.56 X 10*3/uL (0.90-5.00); Lymphocytes % (A) 33.5 %; MCH 31.8 pg (27.0-32.0); MCHC 32.7 g/dL (32.0-37.0); MCV 97.2 FL (80.0-97.0); Mean Platelet Volume 11.2 FL (9.5-12.2); Monocytes # (A) 0.49 X 10*3/uL (0.20-1.00); Monocytes % (A) 10.5 %; NRBC Per 100 WBC 0 X 10*3/uL (0.00-0.01); Neutrophils # (A) 2.38 X 10*3/uL (1.80-7.70); Neutrophils % (A) 51.3 %; Platelet Count 285 X 10*3/uL (140-440); RBC 3.96 X 10*6/uL (4.10-5.20); RDW 13.3 % (11.5-14.5); WBC 4.65 X 10*3/uL (4.50-10.00)
[2024-01-26 15:58] LABS: ALT 16 U/L (8-44); AST 16 U/L (13-35); Albumin 4.3 g/dL (3.8-4.9); Albumin/Globulin Ratio 1.54 Ratio (1.60-3.17); Alkaline Phosphatase 65 U/L (41-126); BUN/Creat Ratio 22.56 Ratio (12.00-20.00); Blood Urea Nitrogen 20.3 mg/dL (9.0-27.0); Calcium 9.8 mg/dL (8.7-10.3); Carbon Dioxide 28.5 mmol/L (21.6-31.8); Chloride 103 mmol/L (96-109); Chol/HDL Ratio 3.48 Ratio; Globulin 2.8 g/dL (1.6-3.3); Glucose 110 mg/dL (70-110); LDL Cholesterol,Calculated 117.5 mg/dL (0.0-131.0); Potassium 4.4 mmol/L (3.5-5.5); Sodium 142 mmol/L (135-145); T4, Free (Free Thyroxine) 0.97 ng/dL (0.80-1.80); Total Bilirubin 0.3 mg/dL (0.3-1.2); Total Protein 7.1 g/dL (6.2-8.2)
== END | disposition home or self-care (01) ==
LOC: LABWHC1 08:39
PROVIDERS: ATTEND Internal Medicine
DX: I10 Essential (primary) hypertension (principal); E78.5 Hyperlipidemia, unspecified
CPT/HCPCS: 36415; 80053; 80061; 83036; 84439; 84443; 85025

== ENCOUNTER → 2024-04-23 | Outpatient (CLI) | payer MEDICARE, OTHER ==
[2024-04-23 09:44] LABS: Basophils # (A) 0.1 k/uL (0-0.2); Basophils % (A) 1 %; Eosinophils # (A) 0.2 k/uL (0-0.7); Eosinophils % (A) 4 %; HCT 39.9 % (34.0-46.0); HGB 12.5 gm/dL (11.4-16.0); Lymphocytes # (A) 1.9 k/uL (1.0-4.8); Lymphocytes % (A) 43 %; MCH 31.8 pg (25.0-35.0); MCHC 31.5 g/dL (31.0-37.0); MCV 101.2 fL (80.0-100.0); Macrocytosis Slight; Mean Platelet Volume 8.4; Monocytes # (A) 0.2 k/uL (0-1.0); Monocytes % (A) 5 %; Neutrophils # (A) 1.9 k/uL (1.3-7.7); Neutrophils % (A) 44 %; Platelet Count 261 k/uL (150-450); RBC 3.94 m/uL (3.80-5.40); RDW 13.5 % (11.5-15.5); WBC 4.4 k/uL (3.8-10.6)
[2024-04-23 16:33] LABS: ALT 19 U/L (8-44); AST 22 U/L (13-35); Albumin 4.4 g/dL (3.8-4.9); Albumin/Globulin Ratio 1.83 Ratio (1.60-3.17); Alkaline Phosphatase 83 U/L (41-126); BUN/Creat Ratio 28.89 Ratio (12.00-20.00); Calcium 9.8 mg/dL (8.7-10.3); Carbon Dioxide 26.3 mmol/L (21.6-31.8); Chloride 104 mmol/L (96-109); Chol/HDL Ratio 2.15 Ratio; Globulin 2.4 g/dL (1.6-3.3); Glucose 110 mg/dL (70-110); LDL Cholesterol,Calculated 76.8 mg/dL (0.0-131.0); Potassium 4.8 mmol/L (3.5-5.5); Sodium 142 mmol/L (135-145); T4, Free (Free Thyroxine) 1.02 ng/dL (0.80-1.80); Total Bilirubin 0.2 mg/dL (0.3-1.2); Total Protein 6.8 g/dL (6.2-8.2); VLDL Calculation 13.24 mg/dL (5.00-40.00)
== END | disposition home or self-care (01) ==
LOC: LABWHC1 08:46
PROVIDERS: ATTEND Internal Medicine
DX: E78.5 Hyperlipidemia, unspecified (principal); I10 Essential (primary) hypertension; E55.9 Vitamin D deficiency, unspecified
CPT/HCPCS: 36415; 80053; 80061; 82306; 84439; 84443; 85025

== ENCOUNTER → 2024-04-26 | Outpatient (CLI) | payer MEDICARE, OTHER ==
--- NOTE | 2024-05-08 13:45 | MM ---
Reason for Exam: Screening (asymptomatic). Last mammogram was performed 1 year(s) and 2 month(s) ago. Patient History: Menarche at age 13. First Full-Term at age 24. Left ovary removed at age 51. Right ovary removed at age 51. Hysterectomy at age 51. Postmenopausal. 1989, Excisional Biopsy on the Right side. Mother had breast cancer, age 73. Risk Values: Jodi 5 year model risk: 3.9%. NCI Lifetime model risk: 6.9%. Prior Study Comparison: 01/23/2021 Bilateral Screening Mammogram, [facility]. 02/22/2022 Bilateral Screening Mammogram, [facility]. 02/24/2023 Bilateral MG 3D screening mammo w/cad, [facility]. Tissue Density: The breasts are heterogeneously dense, which may obscure small masses. Findings: Analyzed By CAD. Asymmetric density 12:00 position right breast 3.2 cm from the nipple. Additional views are recommended. No suspicious calcifications within either breast. No left breast mass seen. Overall Assessment: Incomplete: need additional imaging evaluation, BI-RAD 0 Management: Diagnostic Mammogram of the left breast. . Patient should continue monthly self-breast exams. A clinical breast exam by your physician is recommended on an annual basis. This exam should not preclude additional follow-up of suspicious palpable abnormalities. Note on Jodi scores and lifetime risk: 1. A Jodi score greater than 3% is considered moderate risk. If this is the case, consider specialist referral to assess eligibility for a risk reducing agent. 2. If overall lifetime risk for the development of breast cancer is 20% or higher, the patient may qualify for future screening with alternating mammogram and breast MRI. Electronically signed and approved by: David Squires M.D. Radiologis
== END | disposition home or self-care (01) ==
LOC: RADMAMWWP 12:29
PROVIDERS: ATTEND Obstetrics & Gynecology
DX: Z12.31 Encounter for screening mammogram for malignant neoplasm of breast (principal); R92.333 Mammographic heterogeneous density, bilateral breasts; Z78.0 Asymptomatic menopausal state; Z80.3 Family history of malignant neoplasm of breast
CPT/HCPCS: 77063; 77067

== ENCOUNTER → 2024-05-11 | Outpatient (CLI) | payer MEDICARE, OTHER ==
--- NOTE | 2024-05-11 13:30 | MM ---
Reason for Exam: Additional evaluation requested from abnormal screening. Last screening mammogram was performed less than 1 month ago. Patient History: Menarche at age 13. First Full-Term at age 24. Left ovary removed at age 51. Right ovary removed at age 51. Hysterectomy at age 51. Postmenopausal. 1989, Excisional Biopsy on the Right side. Mother had breast cancer, age 73. Risk Values: Jodi 5 year model risk: 3.9%. NCI Lifetime model risk: 6.9%. Prior Study Comparison: 02/22/2022 Bilateral Screening Mammogram, [facility]. 02/24/2023 Bilateral MG 3D screening mammo w/cad, [facility]. 04/26/2024 Bilateral MG 3D screening mammo w/cad, [facility]. Tissue Density: Right: The breasts are heterogeneously dense, which may obscure small masses. Findings: Analyzed By CAD. No distinct persistent nodule or mass. No distortion present. Overall Assessment: Negative, BI-RAD 1 Management: Screening Mammogram of both breasts in 1 year. . Results were given to the patient verbally at the time of exam. Patient should continue monthly self-breast exams. A clinical breast exam by your physician is recommended on an annual basis. This exam should not preclude additional follow-up of suspicious palpable abnormalities. Note on Jodi scores and lifetime risk: 1. A Jodi score greater than 3% is considered moderate risk. If this is the case, consider specialist referral to assess eligibility for a risk reducing agent. 2. If overall lifetime risk for the development of breast cancer is 20% or higher, the patient may qualify for future screening with alternating mammogram and breast MRI. Electronically signed and approved by: Daivd Squires M.D. Radiologis
== END | disposition home or self-care (01) ==
LOC: RADMAMWWP 12:49
PROVIDERS: ATTEND Obstetrics & Gynecology
DX: R92.331 Mammographic heterogeneous density, right breast (principal); R92.8 Other abnormal and inconclusive findings on diagnostic imaging of breast; Z78.0 Asymptomatic menopausal state; Z80.3 Family history of malignant neoplasm of breast
CPT/HCPCS: 77065; G0279; 77061

== ENCOUNTER → 2025-05-13 | Outpatient (CLI) | payer MEDICARE, OTHER ==
[2025-05-13 15:23] LABS: HCT 37.6 % (37.2-46.3); HGB 12.6 g/dL (12.0-15.0); MCH 32.8 pg (27.0-32.0); MCHC 33.5 g/dL (32.0-37.0); MCV 97.9 FL (80.0-97.0); NRBC Per 100 WBC 0 X 10*3/uL (0.00-0.01); Platelet Count 277 X 10*3/uL (140-440); RBC 3.84 X 10*6/uL (4.10-5.20); RDW 13.3 % (11.5-14.5); WBC 6.17 X 10*3/uL (4.50-10.00)
[2025-05-13 15:50] LABS: ALT 16 U/L (8-44); AST 24 U/L (13-35); Albumin 4.2 g/dL (3.8-4.9); Albumin/Globulin Ratio 2.33 Ratio (1.60-3.17); Alkaline Phosphatase 56 U/L (41-126); Anion Gap 12.50 mmol/L (4.00-12.00); BUN/Creat Ratio 23.36 Ratio (12.00-20.00); Blood Urea Nitrogen 25.7 mg/dL (9.0-27.0); Calcium 9.4 mg/dL (8.7-10.3); Carbon Dioxide 24.5 mmol/L (21.6-31.8); Chloride 103 mmol/L (96-109); Cholesterol 181.00 mg/dL (0.00-200.00); Globulin 1.8 g/dL (1.6-3.3); Glucose 113 mg/dL (70-110); HDL Cholesterol 58.70 mg/dL (40.00-60.00); LDL Cholesterol,Calculated 97.1 mg/dL (0.0-131.0); Potassium 4.3 mmol/L (3.5-5.5); Sodium 140 mmol/L (135-145); T4, Free (Free Thyroxine) 0.89 ng/dL (0.80-1.80); Total Protein 6.0 g/dL (6.2-8.2); Triglycerides 126.00 mg/dL (0.00-149.00); VLDL Calculation 25.20 mg/dL (5.00-40.00)
[2025-05-13 16:59] LABS: Basophils # (A) 0.06 X 10*3/uL (0.00-0.10); Basophils % (A) 1.0 %; Eosinophils # (A) 0.14 X 10*3/uL (0.04-0.35); Eosinophils % (A) 2.3 %; Immature Grans, Automated 0.60 %; Lymphocytes # (A) 1.56 X 10*3/uL (0.90-5.00); Lymphocytes % (A) 25.3 %; Monocytes # (A) 0.64 X 10*3/uL (0.20-1.00); Monocytes % (A) 10.4 %; Neutrophils # (A) 3.73 X 10*3/uL (1.80-7.70); Neutrophils % (A) 60.4 %
== END | disposition home or self-care (01) ==
LOC: LABWHC1 08:45
PROVIDERS: ATTEND Internal Medicine
DX: I10 Essential (primary) hypertension (principal); E78.5 Hyperlipidemia, unspecified
CPT/HCPCS: 36415; 80053; 80061; 82306; 84439; 84443; 85025